=== PATIENT | female | born 1955 | race Caucasian/White ===

== ENCOUNTER → 2016-07-05 | Outpatient (CLI) | payer BC ==
--- NOTE | 2016-07-05 13:07 | MM ---
Reason for exam: follow-up at short interval from prior study. Last mammogram was performed 7 months ago. History: Patient is postmenopausal. Family history of breast cancer in maternal grandmother. Took estrogen for 4 years beginning at age 34. Physical Findings: Nurse did not find any significant physical abnormalities on exam. MG 3D Diag Mammo W/Cad SUMIT Bilateral CC and MLO view(s) were taken. Prior study comparison: June 10, 2015, bilateral MG 3d diag mammo w/cad SUMIT. May 19, 2014, bilateral MG screening mammo w CAD. April 10, 2013, bilateral digital screening mammo w/CAD. The breast tissue is heterogeneously dense. This may lower the sensitivity of mammography. Finding: There are typically benign linear calcifications in both breasts. There is no discrete abnormality. These results were verbally communicated with the patient and result sheet given to the patient on 07/05/16. ASSESSMENT: Benign, BI-RAD 2 RECOMMENDATION: Routine screening mammogram of both breasts in 1 year.
== END | disposition home or self-care (01) ==
LOC: RADMAMWWP 10:45
PROVIDERS: ATTEND Family Medicine
DX: R92.8 Other abnormal and inconclusive findings on diagnostic imaging of breast (principal)
CPT/HCPCS: G0204; G0279

== ENCOUNTER → 2017-05-16 | Outpatient (CLI) | payer BC ==
--- NOTE | 2017-05-16 16:03 | CT ---
EXAMINATION TYPE: CT chest wo con DATE OF EXAM: 05/16/2017 COMPARISON: 12/06/2015 HISTORY: 61-year-old female Chest tightness. Cough. Follow up nodule. TECHNIQUE: Contiguous axial scanning of the chest without IV contrast. Coronal and sagittal reconstru ctions performed. CT DLP: 601 mGycm Automated exposure control for dose reduction was used. FINDINGS: Heart upper limits of normal in size without pericardial effusion. Aorta normal caliber with conventional arch vessel branching anatomy. No thoracic lymphadenopathy by CT size criteria. Interval resolution of previous small left pleural effusion and abnormal left basilar densities. No c onsolidation or pleural effusion. No suspicious pulmonary nodule or mass seen. Small hiatal hernia. Visualized upper abdomen shows low-attenuation of the liver. Bones: Anterior bridging endplate spondylosis throughout the thoracic spine suggestive of DISH. IMPRESSION: 1. INTERVAL CLEARANCE OF PREVIOUS LEFT PLEURAL EFFUSION AND LEFT BASILAR INFILTRATE. NO ACUTE PULMONA RY PROCESS. 2. SMALL HIATAL HERNIA. 3. HEPATIC STEATOSIS.
== END | disposition home or self-care (01) ==
LOC: RADCTMAIN 15:18
PROVIDERS: ATTEND Nurse Practitioner Family
DX: R05 Cough (principal); R06.09 Other forms of dyspnea
CPT/HCPCS: 71250

== ENCOUNTER 2017-05-25 08:53 | Day surgery (SDC) | payer BC ==
[2017-05-23 12:20] VITALS: BMI 23.3
[~2017-05-25 08:53] MED LIST: LACTATED RINGERS 1,000 ML IV SCH; LIDOCAINE 1% 20 ML VIAL (10MG/ML) FOR IV START INTRADERMA PRN
[2017-05-25 09:58] VITALS: TEMP 99
[2017-05-25] MEDS ORDERED: fentaNYL (PF) 50 MCG/ML 2 ML AMP ONE (10:16)
[2017-05-25] MEDS ORDERED: PROPOFOL 10 MG/ML 20 ML VIAL IV ONE (10:16)
[2017-05-25] MEDS ORDERED: MIDAZOLAM 2 MG/2 ML VIAL ONE (10:16)
[2017-05-25 10:40] VITALS: PULSE 76; RESP 16
--- NOTE | 2017-05-25 10:40 | P.PCN ---
Date of Procedure: 05/25/17 Procedure(s) Performed: BRIEF HISTORY: Patient is a 61-year-old pleasant white female, scheduled for an elective colonoscopy as a part of evaluation of prior history of colon polyps. Last colonoscopy was 5 years ago. PROCEDURE PERFORMED: Colonoscopy. PREOPERATIVE DIAGNOSIS: History of colon polyps. IV sedation per Anesthesia. PROCEDURE: After informed consent was obtained, the patient, was brought into the endoscopy unit. IV sedation was administered by Anesthesia under continuous monitoring. Digital rectal examination was normal. Initially the Olympus CF- 160 flexible video colonoscope was then inserted in the rectum, gradually advanced into the cecum without any difficulty. Careful examination was performed as the scope was gradually being withdrawn. Ileocecal valve and the appendiceal orifice were visualized and appeared normal. Prep was excellent. Mucosa of the cecum, ascending colon, transverse colon, descending colon, sigmoid colon, and rectum appeared normal. Retroflexion was performed in the rectum and no lesions were seen. The patient tolerated the procedure well. IMPRESSION: Normal-appearing colon from rectum to cecum with no evidence of colorectal neoplasia. RECOMMENDATIONS: Findings of this examination were discussed with the patient as well as a family. She was advised to have a repeat screening colonoscopy in 5 years from now because of prior history of colon polyps..
[2017-05-25 11:04] VITALS: BP 118/76
== END 2017-05-25 11:17 | disposition home or self-care (01) ==
LOC: ORWHC2ENDO 08:53
PROVIDERS: ATTEND Internal Medicine Gastroenterology
DX: Z12.11 Encounter for screening for malignant neoplasm of colon (principal); K21.9 Gastro-esophageal reflux disease without esophagitis; J45.909 Unspecified asthma, uncomplicated; I10 Essential (primary) hypertension; F41.9 Anxiety disorder, unspecified; Z79.899 Other long term (current) drug therapy; Z86.010 Personal history of colon polyps; Z88.2 Allergy status to sulfonamides; Z88.5 Allergy status to narcotic agent; Z88.8 Allergy status to other drugs, medicaments and biological substances
CPT/HCPCS: 45378; J2250; J3010; J2704

== ENCOUNTER → 2017-09-14 | Outpatient (CLI) | payer BC ==
--- NOTE | 2017-09-17 14:56 | MM ---
Reason for exam: screening (asymptomatic). Last mammogram was performed 1 year and 2 months ago. History: Patient is postmenopausal. Family history of breast cancer in maternal grandmother. Took estrogen for 4 years beginning at age 34. Physical Findings: A clinical breast exam by your physician is recommended on an annual basis and results should be correlated with mammographic findings. MG 3D Screening Mammo W/Cad Bilateral CC, MLO, and XCCL view(s) were taken. Prior study comparison: July 05, 2016, bilateral MG 3d diag mammo w/cad SUMIT. December 08, 2015, left breast MG 3d diag mammo w/cad LT. The breast tissue is heterogeneously dense. This may lower the sensitivity of mammography. No significant changes when compared with prior studies. ASSESSMENT: Benign, BI-RAD 2 RECOMMENDATION: Routine screening mammogram of both breasts in 1 year.
== END | disposition home or self-care (01) ==
LOC: RADMAMWWP 13:33
PROVIDERS: ATTEND Family Medicine
DX: Z12.31 Encounter for screening mammogram for malignant neoplasm of breast (principal)
CPT/HCPCS: 77063; 77067

== ENCOUNTER → 2018-07-19 | Outpatient (CLI) | payer BC ==
--- NOTE | 2018-07-20 11:21 | XR ---
Cervical spine HISTORY: Pain 5 views of the cervical spine There is multilevel facet arthropathy. Multilevel spondylosis is present. Lateral extension of endpla roman at C4-5, C5-6, C3-4 causes some foraminal encroachment. Minimal retrolisthesis grade 1 C4-5, C5-6 . There is loss of disc height at C4-5 and C5-6. Prevertebral soft tissues are normal. IMPRESSION: Degenerative disc disease. Facet arthropathy. Foraminal encroachment.
== END | disposition home or self-care (01) ==
LOC: RADXRMAIN 15:21
PROVIDERS: ATTEND Nurse Practitioner Family
DX: M50.321 Other cervical disc degeneration at C4-C5 level (principal); M46.92 Unspecified inflammatory spondylopathy, cervical region
CPT/HCPCS: 72050

== ENCOUNTER → 2018-08-27 | Outpatient (CLI) | payer BC ==
--- NOTE | 2018-08-27 16:04 | US ---
EXAMINATION TYPE: US bladder DATE OF EXAM: 08/27/2018 COMPARISON: CT, Us CLINICAL HISTORY: R39.15 Urgency of urination and frequency, bladder suspension EXAM MEASUREMENTS: Post Void Residual Volume: 5.8 mL Bladder sits low in pelvis. Color Doppler performed to assess ureteral jets. Bilateral Jets seen: right ureteral jet was not seen after 3 minute observation Normal Post Void Residual (less than 50ml): yes, post void residual wnl. IMPRESSION: Normal post void residual volume
== END | disposition home or self-care (01) ==
LOC: RADUSWWP 14:11
PROVIDERS: ATTEND Family Medicine
DX: R39.15 Urgency of urination (principal)
CPT/HCPCS: 76857

== ENCOUNTER → 2018-09-20 | Outpatient (CLI) | payer BC ==
--- NOTE | 2018-09-23 07:58 | MM ---
Reason for exam: clinical finding. Last mammogram was performed 1 year ago. History: Patient is postmenopausal. Family history of breast cancer in maternal grandmother. Took estrogen for 4 years beginning at age 34. Physical Findings: Nurse did not find any significant physical abnormalities on exam. MG 3D Diag Mammo W/Cad SUMIT Bilateral CC and MLO view(s) were taken. Prior study comparison: September 14, 2017, bilateral MG 3d screening mammo w/cad. July 05, 2016, bilateral MG 3d diag mammo w/cad SUMIT. The breast tissue is heterogeneously dense. This may lower the sensitivity of mammography. Stable benign calcifications. No significant new findings when compared with previous films. These results were verbally communicated with the patient and result sheet given to the patient on 09/20/18. ASSESSMENT: Benign, BI-RAD 2 RECOMMENDATION: Routine screening mammogram of the right breast in 1 year.
== END | disposition home or self-care (01) ==
LOC: RADMAMWWP 15:56
PROVIDERS: ATTEND Family Medicine
DX: N64.4 Mastodynia (principal)
CPT/HCPCS: 77062; 77066

== ENCOUNTER → 2019-05-26 | Outpatient (CLI) | payer BC ==
--- NOTE | 2019-05-26 14:15 | US ---
EXAMINATION TYPE: US abdomen complete DATE OF EXAM: 05/26/2019 COMPARISON: US 02/02/2015 CLINICAL HISTORY: R10.84 ABDOMINAL PAIN. Extremely difficult and limited exam due to overlying bowel gas EXAM MEASUREMENTS: Liver Length: 17.3 cm Gallbladder Wall: 0.2 cm CBD: 0.6 cm Spleen: 8.2 cm Right Kidney: 9.2 x 3.3 x 3.6 cm Left Kidney: 12.0 x 5.8 x 4.5 cm Pancreas: Obscured by bowel gas Liver: Measuring upper limits of normal. There is increased echogenicity of the hepatic parenchyma w ith diminished visualization of the portal triads most commonly relating to hepatic steatosis and kulkarni iting evaluation for underlying hepatic masses. Gallbladder: wnl Evidence for sonographic Tran's sign: No CBD: very difficult to visualize, measuring upper limits of normal Spleen: wnl Right Kidney: No hydronephrosis or masses seen Left Kidney: No hydronephrosis or masses seen Upper IVC: wnl Abd Aorta: wnl as visualized The intrahepatic portion of the IVC and proximal abdominal aorta are within normal limits. There is no evidence of cholelithiasis. Common bile duct is unremarkable. The visualized portions of the durand creas are homogenous. The spleen is unremarkable. Kidneys are symmetric and free of hydronephrosis. No renal lesions are seen. IMPRESSION: Limited exam secondary to overlying bowel gas. 1. Sonographic findings most commonly related to hepatic steatosis. Correlate with liver function roman ts. 2. Difficulty visualizing the common bile duct however the common bile duct does appear upper limits of normal. No other sonographic evidence of acute cholecystitis seen.
== END | disposition home or self-care (01) ==
LOC: RADUSWWP 11:58
PROVIDERS: ATTEND Family Medicine
DX: R10.84 Generalized abdominal pain (principal)
CPT/HCPCS: 76700

== ENCOUNTER 2019-12-26 07:04 | Inpatient (IN) | payer BC ==
[2019-12-26] MEDS ORDERED: SODIUM CHLORIDE 0.9% 500 ML 500 ML IV ONE (07:35)
--- NOTE | 2019-12-26 07:38 | ED ---
Abdominal Pain HPI - General Chief Complaint: Abdominal Pain Stated Complaint: Abdominal pain Time Seen by Provider: 12/26/19 07:25 Source: patient Mode of arrival: ambulatory Limitations: no limitations - History of Present Illness Initial Comments: 64-year-old female with history of complete hysterectomy secondary to endometriosis, bowel obstruction with resection in past presenting to the emergency department today for chief complaint of lower abdominal pain x 3 days. Patient states she has bilateral lower abdominal pain she states is very crampy in nature. She states she has noticed increased constipation and hard stools. Patient denies any dysuria but admits to urgency denies frequency fevers nausea vomiting chest pain shortness of breath, dark or blood stools. Patient states he took Advil just prior to arrival she appears well nontoxic no acute distress. Patient states she did see her PCP who did a urine yesterday but did not show s igns of infection. - Related Data Home Medications Medication Instructions Recorded Confirmed Escitalopram Oxalate [Lexapro] 10 mg PO DAILY 12/06/15 12/26/19 LORazepam [Ativan] 1 mg PO BID PRN 12/06/15 12/26/19 Esomeprazole Magnesium [NexIUM] 20 mg PO DAILY 05/23/17 12/26/19 lisinopriL [Zestril] 5 mg PO DAILY 05/23/17 12/26/19 Montelukast [Singulair] 10 mg PO HS 12/26/19 12/26/19 cycloSPORINE [Restasis Multidose] 1 drop BOTH EYES BID 12/26/19 12/26/19 Allergies Allergy/AdvReac Type Severity Reaction Status Date / Time codeine Allergy FLUSHED Verified 12/26/19 08:31 levofloxacin [From Levaquin] Allergy Nausea & Verified 12/26/19 08:31 Vomiting Sulfa (Sulfonamide Allergy Unknown Verified 12/26/19 08:31 Antibiotics) theophylline Allergy Rapid Verified 12/26/19 08:31 Heart Rate Review of Systems ROS Statement: Those systems with pertinent positive or pertinent negative responses have been documented in the HPI. ROS Other: All systems not noted in ROS Statement are negative. Past Medical History Past Medical History: Asthma, GERD/Reflux, Hyperlipidemia, Hypertension, O steoarthritis (OA), Skin Disorder Additional Past Medical History / Comment(s): SEIZURE -LAST SEIZURE AT AGE 30 ,"INCOMPLETE RIGHT BUNDLE BRANCH BLOCK" History of Any Multi-Drug Resistant Organisms: None Reported Past Surgical History: Bowel Resection, Hysterectomy Additional Past Surgical History / Comment(s): BOWEL RESECTION, BLADDER REPAIR,CYST REMOVED FROM OVARY Past Anesthesia/Blood Transfusion Reactions: No Reported Reaction Past Psychological History: Anxiety, Depression Smoking Status: Never smoker Past Alcohol Use History: Rare Past Drug Use History: None Reported - Past Family History Mother Family Medical History: Cancer Additional Family Medical History / Comment(s): COLON CANCER General Exam - General Exam Comments Initial Comments: General: The patient is awake and alert, in no distress Eye: +3 mm pupils are equal, round and reactive to light, extra-ocular movements are intact. No nystagmus. There is normal conjunctiva bilaterally. No signs of icterus. Ears, nose, mouth and throat: There are moist mucous membranes and no oral lesions. Neck: The neck is supple, there is no tenderness or JVD. Cardiovascular: There is a regular rate and rhythm. No murmur, rub or gallop is appreciated. Respiratory: Lungs are clear to auscultation, respirations are non-labored, breath sounds are equal. No wheezes, stridor, rales, or rhonchi. Gastrointestinal: Soft, non-distended, tender lower middle abdomen, abdomen without masses or organomegaly noted. There is no rebound or guarding present. Musculoskeletal: Normal ROM, no tenderness. Strength 5/5. Sensation intact. Radial pulses equal bilaterally 2+. Neurological: A&O x 3. CN II-XII intact grossly, There are no obvious motor or sensory deficits. Coordination appears grossly intact. Speech is normal. Skin: Skin is warm and dry and no rashes or lesions are noted. Psychiatric: Cooperative, appropriate mood & affect, normal judgment. Limitations: no limitations Course Vital Signs 12/26/19 07:15 Temperature 98.5 F Pulse Rate 99 Respiratory 18 Rate Blood Pressure 127/79 O2 Sat by Pulse 98 Oximetry Medical Decision Making - Medical Decision Making Mild leukocytosis. Severe diverticulitis. Given age, pain, severe nature of disease will admit on IV abx, monitoring. Patient is agreeable to care plan and admission as is attending provider Dr. Rosas. - Lab Data Result diagrams: 12/26/19 07:56 12/26/19 07:56 Lab Results 10/02/20 10/02/20 10/02/20 Range/Units 07:56 07:56 07:56 WBC 12.7 H (3.8-10.6) k/uL RBC 4.52 (3.80-5.40) m/uL Hgb 12.5 (11.4-16.0) gm/dL Hct 39.2 (34.0-46.0) % MCV 86.6 (80.0-100.0) fL MCH 27.6 (25.0-35.0) pg MCHC 31.8 (31.0-37.0) g/dL RDW 13.8 (11.5-15.5) % Plt Count 335 (150-450) k/uL Neutrophils % 75 % Lymphocytes % 17 % Monocytes % 6 % Eosinophils % 1 % Basophils % 0 % Neutrophils # 9.4 H (1.3-7.7) k/uL Lymphocytes # 2.1 (1.0-4.8) k/uL Monocytes # 0.7 (0-1.0) k/uL Eosinophils # 0.1 (0-0.7) k/uL Basophils # 0.0 (0-0.2) k/uL Sodium 136 L (137-145) mmol/L Potassium 4.3 (3.5-5.1) mmol/L Chloride 102 (98-107) mmol/L Carbon Dioxide 28 (22-30) mmol/L Anion Gap 6 mmol/L BUN 12 (7-17) mg/dL Creatinine 0.76 (0.52-1.04) mg/dL Est GFR (CKD-EPI)AfAm >90 (>60 ml/min/1.73 sqM) Est GFR (CKD-EPI)NonAf 83 (>60 ml/min/1.73 sqM) Glucose 117 H (74-99) mg/dL Calcium 9.6 (8.4-10.2) mg/dL Total Bilirubin 1.2 (0.2-1.3) mg/dL AST 28 (14-36) U/L ALT 36 H (4-34) U/L Alkaline Phosphatase 95 (38-126) U/L Total Protein 6.9 (6.3-8.2) g/dL Albumin 4.0 (3.5-5.0) g/dL Amylase 52 (30-110) U/L Lipase 60 (23-300) U/L Urine Color Light Red Urine Appearance Clear (Clear) Urine pH 5.5 (5.0-8.0) Ur Specific Douglas 1.028 (1.001-1.035) Urine Protein 1+ H (Negative) Urine Glucose (UA) Negative (Negative) Urine Ketones Negative (Negative) Urine Blood Moderate H (Negative) Urine Nitrite Negative (Negative) Urine Bilirubin Negative (Negative) Urine Urobilinogen 2.0 (<2.0) mg/dL Ur Leukocyte Esterase Moderate H (Negative) Urine RBC 4 (0-5) /hpf Urine WBC 4 (0-5) /hpf Ur Squamous Epith Cells 5 H (0-4) /hpf Hyaline Casts 2 (0-2) /lpf Urine Mucus Many H (None) /hpf Disposition Clinical Impression: Diverticulitis, Lower abdominal pain, Leukocytosis Disposition: ADMITTED IP TO THIS [facility] Condition: Stable Additional Instructions: . Is patient prescribed a controlled substance at d/c from ED?: No Referrals: Sharmila Mata III, MD [Primary Care Provider] - 1-2 days Time of Disposition: 09:03 Decision to Admit Reason: Admit from [facility] Decision Date: 12/26/19 Decision Time: 09:03
[2019-12-26 08:07] LABS: Basophils % (A) 0 %; Eosinophils # (A) 0.1 k/uL (0-0.7); Eosinophils % (A) 1 %; HCT 39.2 % (34.0-46.0); HGB 12.5 gm/dL (11.4-16.0); Lymphocytes # (A) 2.1 k/uL (1.0-4.8); Lymphocytes % (A) 17 %; MCH 27.6 pg (25.0-35.0); MCHC 31.8 g/dL (31.0-37.0); MCV 86.6 fL (80.0-100.0); Mean Platelet Volume 6.7; Monocytes # (A) 0.7 k/uL (0-1.0); Monocytes % (A) 6 %; Neutrophils # (A) 9.4 k/uL (1.3-7.7); Neutrophils % (A) 75 %; Platelet Count 335 k/uL (150-450); RBC 4.52 m/uL (3.80-5.40); RDW 13.8 % (11.5-15.5); WBC 12.7 k/uL (3.8-10.6)
[2019-12-26 08:17] LABS: Appearance,Urine Clear (Clear); Bilirubin,Urine Negative (Negative); Blood,Urine Moderate (Negative); Color,Urine Light Red; Glucose,Urine (UA) Negative (Negative); Hyaline Casts,Urine 2 /lpf (0-2); Ketones,Urine Negative (Negative); Leukocyte Esterase,Urine Moderate (Negative); Mucus,Urine Many /hpf; Nitrite,Urine Negative (Negative); PH, Urine 5.5 (5.0-8.0); Protein,Urine 1+ (Negative); RBC,Urine 4 /hpf (0-5); Specific Gravity,Urine 1.028 (1.001-1.035); Squamous Epithelial Cell,Urine 5 /hpf (0-4); WBC,Urine 4 /hpf (0-5)
[2019-12-26 08:21] LABS: ALT 36 U/L (4-34); AST 28 U/L (14-36); African American GFR (CKD) >90 (>60 ml/min/1.73 sqM); Alkaline Phosphatase 95 U/L (38-126); Amylase 52 U/L (30-110); Anion Gap 6 mmol/L; Blood Urea Nitrogen 12 mg/dL (7-17); Calcium 9.6 mg/dL (8.4-10.2); Carbon Dioxide 28 mmol/L (22-30); Chloride 102 mmol/L (98-107); Glucose 117 mg/dL (74-99); Non-African American GFR(CKD) 83 (>60 ml/min/1.73 sqM); Potassium 4.3 mmol/L (3.5-5.1); Sodium 136 mmol/L (137-145); Total Bilirubin 1.2 mg/dL (0.2-1.3); Total Protein 6.9 g/dL (6.3-8.2)
--- NOTE | 2019-12-26 08:22 | XR ---
EXAMINATION TYPE: XR KUB DATE OF EXAM: 12/26/2019 8:14 AM CLINICAL HISTORY: Lower abdominal pain and constipation. TECHNIQUE: Two Upright KUB images of the abdomen are obtained. COMPARISON: None abdominal x-ray March 15, 2013. FINDINGS: Scattered gas is seen in non-distended small and large bowel loops, a few scattered air-flu id levels seen, nonspecific finding. Moderate disc space narrowing and spurring left L4-L5 level more prominent from prior. Surgical clips and phleboliths overlie the pelvis similar to prior. Lung bases are clear. No pneumoperitoneum. Roughly 10 mm right lower quadrant calcification near the right L4 t ransverse process increased in size from prior study, etiology uncertain. Abdominal ultrasound May 26, 2019 does not show right-sided hydronephrosis. Favor high positioned phlebolith. IMPRESSION: Overall nonspecific but strongly favor nonobstructive bowel gas pattern.
--- NOTE | 2019-12-26 08:59 | CT ---
EXAMINATION TYPE: CT abdomen pelvis w con DATE OF EXAM: 12/26/2019 HISTORY: generalized pelvic pain, bloating CT DLP: 781.5mGycm Automated Exposure Control for Dose Reduction was Utilized. CONTRAST: CT scan of the abdomen and pelvis is performed without oral but with IV Contrast, patient injected wi th 100 mL of Isovue 300. COMPARISON: CT abdomen and pelvis March 15, 2013 FINDINGS: LUNG BASES: Patchy left basilar linear atelectasis on current study. LIVER/GB: Liver remains heterogeneously hypodense suggesting diffuse fatty infiltration. PANCREAS: No significant abnormality is seen. SPLEEN: No significant abnormality is seen. ADRENALS: No significant abnormality is seen. KIDNEYS: Symmetric cortical medullary uptake and excretion from both kidneys without hydronephrosis s een bilaterally. BOWEL: Surgical sutures from prior small bowel anastomosis iliac loops right upper pelvis axial image 59. No suspicious small or large bowel dilatation. There is focal moderate to severe wall thickening in the sigmoid colon centered mid sigmoid level in the mid to lower pelvis with a few small scattere d diverticula. There is moderate to severe ill-defined fluid and fat stranding. No free air is presen t. No well-formed fluid collection or abscess noted. Reference axial image 70. Consider colonoscopy f ollow-up after treatment to rule out underlying mass effect has not been performed in last 3 years. UTERUS/ADNEXA: Uterus surgically absent or markedly atrophic. Scattered bilateral pelvic phleboliths are present. LYMPH NODES: No greater than 1cm abdominal or pelvic lymph nodes are appreciated. OSSEOUS STRUCTURES: Yizapqiq-yj-hyojsj disc space narrowing L4-L5 and L5-S1 levels. Vacuum disc pheno jorgito L4-L5 level. Facet arthropathy lower lumbar spine. OTHER: No significant additional abnormality is seen. IMPRESSION: CT findings consistent with a fairly moderate to severe but uncomplicated acute diverticu litis mid sigmoid colon level in the mid to lower pelvis as detailed above.
[2019-12-26] MEDS ORDERED: NALOXONE 0.4 MG/ML 1 ML VIAL IV PRN (09:03)
[2019-12-26] MEDS ORDERED: PIPERACILLIN-TAZOBACTAM 3.375 GM in SODIUM CHLORIDE 0.9% 100 ML IVPB ONE (09:15)
[2019-12-26] MEDS: PIPERACILLIN-TAZOBACTAM 3.375 GM in SODIUM CHLORIDE 0.9% 100 ML IVPB SCH ×2 (16:01→23:44)
--- NOTE | 2019-12-26 21:17 | P.HPIM ---
History of Present Illness H&P Date: 12/26/19 Patient is a 63-year-old male with known history of hypertension, hyperlipidemia, osteoarthritis, history of bowel resection due to obstruction, hysterectomy secondary to endometriosis, asthma, GERD and anxiety/depression with previous history of smoking came to ER with complaints of abdominal pain for the past 3 days. Patient states that she does have bilateral lower abdominal pain. Cramping type is also with nausea. Patient is also having constipation and hard stools recently. Denied any dysuria or hematuria. No fever no chills. No complaints of chest pain or shortness breath. Denies any hematemesis or melena or hematochezia. Patient states that she did see her primary care physician and urinalysis was done which showed no signs of infection. Laboratory showed WBC 12.7, hemoglobin 12.5, platelets 335 Sodium 136, potassium 4.3, BUN 12 and creatinine 0.76 AST 28 ALT 36 and alk phos 95 Lipase 60 Urinalysis showed moderate blood and moderate leukocyte esterase. WBC is less than 4 Patient has been afebrile. CT of the abdomen pelvis showed is consistent with fairly moderate to severe but uncomplicated acute diverticulitis. Mild sigmoid colon level in the mid to lower pelvis. KUB x-ray showed overall nonspecific but strongly favor for nonobstructive bowel gas pattern. Review of Systems Constitutional: Patient denies any fever or chills . No generalized weakness or weight loss. Abdomen: Abdominal pain associate with nausea. No diarrhea. patient does have constipation.. Cardiovascular: Patient denies any chest pain or short of breath no palpitations. Respiratory: patient denied any cough or sputum production. No shortness of breath Neurologic: Patient denied any numbness or tingling headache. Musculoskeletal: Patient denies any complaints of joint swelling or deformity. Skin: Negative Psychiatric: Negative Endocrine: No heat or cold intolerance. No recent weight gain. Genitourinary: No dysuria or hematuria. All other 14 point ROS negative except the above Past Medical History Past Medical History: Asthma, GERD/Reflux, Hyperlipidemia, Hypertension, Osteoarthritis (OA), Skin Disorder Additional Past Medical History / Comment(s): SEIZURE -LAST SEIZURE AT AGE 30 ,"INCOMPLETE RIGHT BUNDLE BRANCH BLOCK" History of Any Multi-Drug Resistant Organisms: None Reported Past Surgical History: Bowel Resection, Hysterectomy Additional Past Surgical History / Comment(s): BOWEL RESECTION, BLADDER REPAIR,CYST REMOVED FROM OVARY Past Anesthesia/Blood Transfusion Reactions: No Reported Reaction Past Psychological History: Anxiety, Depression Smoking Status: Former smoker Past Alcohol Use History: Rare Additional Past Alcohol Use History / Comment(s): STARTED SMOKING AT 16 QUIT AGE 29 SMOKED ON AND OFF SMOKED 1/2PPD Past Drug Use History: None Reported - Past Family History Mother Family Medical History: Cancer Additional Family Medical History / Comment(s): COLON CANCER Medications and Allergies Home Medications Medication Instructions Recorded Confirmed Type Escitalopram Oxalate [Lexapro] 10 mg PO DAILY 12/06/15 12/26/19 History LORazepam [Ativan] 1 mg PO BID PRN 12/06/15 12/26/19 History Esomeprazole Magnesium [NexIUM] 20 mg PO DAILY 05/23/17 12/26/19 History lisinopriL [Zestril] 5 mg PO DAILY 05/23/17 12/26/19 History Montelukast [Singulair] 10 mg PO HS 12/26/19 12/26/19 History cycloSPORINE [Restasis Multidose] 1 drop BOTH EYES BID 12/26/19 12/26/19 History Allergies Allergy/AdvReac Type Severity Reaction Status Date / Time codeine Allergy FLUSHED Verified 12/26/19 08:31 levofloxacin [From Levaquin] Allergy Nausea & Verified 12/26/19 08:31 Vomiting Sulfa (Sulfonamide Allergy Unknown Verified 12/26/19 08:31 Antibiotics) theophylline Allergy Rapid Verified 12/26/19 08:31 Heart Rate Physical Exam Vitals: Vital Signs Temp Pulse Pulse Resp BP BP Pulse Ox 12/26/19 14:58 98.4 F 81 17 125/79 97 12/26/19 09:25 82 18 124/76 99 12/26/19 07:15 98.5 F 99 18 127/79 98 Intake and Output 12/26/19 12/26/19 12/26/19 06:59 14:59 22:59 Other: Voiding Method Toilet # Voids 2 Weight 66.678 kg PHYSICAL EXAMINATION: Patient is lying in the bed comfortably, no acute distress, awake alert and oriented.. HEENT: Normocephalic. Neck is supple. Pupils reactive. Nostrils clear. Oral cavity is moist. Ears reveal no drainage. Neck reveals no JVD, carotid bruits, or thyromegaly. CHEST EXAMINATION: Trachea is central. Symmetrical expansion. Lung lombardo clear to auscultation and percussion. CARDIAC: Normal S1, S2 with no gallops. No murmurs ABDOMEN: Soft.Mild lower abdominal tenderness mainly on the left side. No guarding no rigidity. Bowel sounds normal. No organomegaly. No abdominal bruits. Extremities: reveal no edema. No clubbing or cyanosis Neurologically awake, alert, oriented x3 with well-coordinated movements. No focal deficits noted Skin: No rash or skin lesions. Psychiatric: Coperative. Nonsuicidal Musculoskeletal: No joint swelling or deformity. Normal range of motion. Results CBC & Chem 7: 12/28/19 05:52 12/26/19 07:56 Labs: Abnormal Lab Results - Last 24 Hours (Table) 12/26/19 12/26/19 12/26/19 Range/Units 07:56 07:56 07:56 WBC 12.7 H (3.8-10.6) k/uL Neutrophils # 9.4 H (1.3-7.7) k/uL Sodium 136 L (137-145) mmol/L Glucose 117 H (74-99) mg/dL ALT 36 H (4-34) U/L Urine Protein 1+ H (Negative) Urine Blood Moderate H (Negative) Ur Leukocyte Esterase Moderate H (Negative) Ur Squamous Epith Cells 5 H (0-4) /hpf Urine Mucus Many H (None) /hpf Thrombosis Risk Factor Assmnt - DVT/VTE Prophylaxis DVT/VTE Prophylaxis: Pharmacologic Prophylaxis ordered - Choose All That Apply Any of the Below Risk Factors Present?: No Other Risk Factors: Yes Each Risk Factor Represents 2 Points: Age 61-74 years Other congenital or acquired thrombophilia - If yes, enter type in comment: No Thrombosis Risk Factor Assessment Total Risk Factor Score: 2 Thrombosis Risk Factor Assessment Level: Low Risk Assessment and Plan Assessment: Abdominal pain secondary to acute severe diverticulitis. Hypertension Hyperlipidemia GERD Asthma not in exacerbation Anxiety/depression Previous history of smoking History of bowel resection due to obstruction. History of hysterectomy secondary to endometriosis. DVT prophylaxis plan: Patient will be continued IV hydration with normal saline and antibiotics in the form of Zosyn. Continue with home blood pressure medications and GI and DVT prophylaxis. Gastroenterology service was consulted. Further recommendations based on the clinical course. Time with Patient: Greater than 30
[2019-12-26] MEDS: MONTELUKAST 10 MG TAB PO SCH (21:18)
[2019-12-26] MEDS: LORazepam 1 MG TAB PO PRN (21:22)
--- NOTE | 2019-12-26 22:19 | CONS ---
CONSULTATION DATE OF DICTATION: 12/26/2019 REASON FOR CONSULTATION: Acute significant diverticulitis. HISTORY OF PRESENT ILLNESS: The patient is a 64-year-old pleasant white female who came to the emergency room complaining of left lower quadrant abdominal pain for the last 4 days' duration. The pain continued to progressively get worse and she initially had some constipation and subsequently had loose bowel movements. The pain persisted and she had a low-grade fever of 100.1 and hence came into the emergency room and was subsequently admitted to the hospital for further management. She did have a CT of the abdomen and pelvis done in the emergency room that showed moderate to severe uncomplicated acute diverticulitis. She was started on broad-spectrum antibiotics, feeling somewhat better today. She never had these symptoms in the past. Her last colonoscopy was done by me 2 years ago and was normal. PAST MEDICAL HISTORY: Her past medical history is significant for asthma, GERD, hypertension, hyperlipidemia, degenerative joint disease, seizure disorder. PAST SURGICAL HISTORY: Bowel resection, hysterectomy, bladder repair, cyst removed from the right ovary. ALLERGIES: SULFA, LEVAQUIN, CODEINE AND THEOPHYLLINE. MEDICATIONS AT HOME: Medications at home include Lexapro, Ativan, Zestril, Nexium, Singulair, cyclosporine eyedrops and Ativan p.r.n. SOCIAL HISTORY: No smoking. No alcohol use. FAMILY HISTORY: Mother had colon cancer. REVIEW OF SYSTEMS: CARDIOPULMONARY: No chest pain or shortness of breath. GENITOURINARY: No dysuria or hematuria. MUSCULOSKELETAL: Unremarkable. SKIN: Unremarkable. ENDOCRINE: Unremarkable. PSYCHIATRIC: Unremarkable. NEUROLOGY: Unremarkable. ENT/VISION: Unremarkable. CONSTITUTIONAL: No recent weight loss. No fever, chills, night sweats. PHYSICAL EXAMINATION: She appears comfortable. No apparent distress. Vital signs are stable. Temperature was 98.4, pulse rate 81, blood pressure 125/79, respirations 17. HEENT examination unremarkable. Conjunctivae pink. Sclerae anicteric. Oral cavity no lesions. NECK: No JVD or lymph node enlargement. CHEST: Clear to auscultation. HEART: Regular rate and rhythm. ABDOMEN: Soft. Tenderness in the left lower quadrant area as well as in the suprapubic area. Rest of the abdomen was benign. No rebound or rigidity. EXTREMITIES: No pedal edema. SKIN: No rashes. NEUROLOGIC: Alert and oriented x3. No focal deficits. LABS: WBC 12.7, hemoglobin 12.5, platelets normal. Neutrophils 9.4. Basic metabolic panel is within normal limits. Urinalysis: Moderate leukocyte esterase. IMPRESSION: 1. This is a lady who presented to the hospital with acute onset of severe left lower quadrant and suprapubic pain for the last [address] scan of the abdomen showed moderate to severe uncomplicated sigmoid diverticulitis, presently on broad- spectrum antibiotics with Zosyn and pain medications. Symptoms are gradually improving. Her last colonoscopy was 2 years ago and was normal. 2. History of hypertension. 3. History of gastroesophageal reflux disease. RECOMMENDATIONS: 1. Clear liquid diet. 2. Continue broad-spectrum antibiotics. 3. Repeat labs in the morning. 4. Will follow with you closely. Thank you for this consultation. MMODL / IJN: [id number] /
[2019-12-26] MEDS: cycloSPORINE 0.05% OPHTH 0.4 ML DROPERETTE BOTH EYES SCH (23:43)
[2019-12-26] MEDS: SODIUM CHLORIDE 0.9% 1,000 ML IV SCH (23:44)
[2019-12-26] MEDS: HEPARIN SODIUM,PORCINE 5,000 UNIT/ML 1 ML VIAL SQ SCH (23:45)
[2019-12-27] MEDS: PANTOPRAZOLE 40 MG TABLET PO SCH (09:34)
[2019-12-27] MEDS: HEPARIN SODIUM,PORCINE 5,000 UNIT/ML 1 ML VIAL SQ SCH ×4 (09:34→23:17)
[2019-12-27] MEDS: ESCITALOPRAM 10 MG TAB PO SCH (09:34)
[2019-12-27] MEDS: PIPERACILLIN-TAZOBACTAM 3.375 GM in SODIUM CHLORIDE 0.9% 100 ML IVPB SCH ×3 (09:34→23:16)
[2019-12-27] MEDS: lisinopriL 5 MG TAB PO SCH (09:34)
[2019-12-27] MEDS: cycloSPORINE 0.05% OPHTH 0.4 ML DROPERETTE BOTH EYES SCH ×2 (09:35→20:55)
[2019-12-27 09:46] LABS: Basophils % (A) 0 %; Eosinophils # (A) 0.1 k/uL (0-0.7); Eosinophils % (A) 1 %; HGB 11.4 gm/dL (11.4-16.0); Lymphocytes # (A) 1.9 k/uL (1.0-4.8); Lymphocytes % (A) 24 %; MCH 28.4 pg (25.0-35.0); MCHC 32.5 g/dL (31.0-37.0); MCV 87.2 fL (80.0-100.0); Mean Platelet Volume 6.7; Monocytes # (A) 0.4 k/uL (0-1.0); Monocytes % (A) 5 %; Neutrophils # (A) 5.5 k/uL (1.3-7.7); Neutrophils % (A) 68 %; Platelet Count 313 k/uL (150-450); RBC 4.01 m/uL (3.80-5.40); RDW 13.8 % (11.5-15.5)
--- NOTE | 2019-12-27 11:13 | PN ---
PROGRESS NOTE DATE OF SERVICE: December 27, 2019 Patient is a 64-year-old pleasant white female admitted to the hospital with severe lower abdominal pain and altered bowel movements for 3-4 days duration. She was subsequently diagnosed with acute sigmoid diverticulitis on CT of the abdomen and pelvis. Presently on Zosyn. Her symptoms are gradually improving. She still has some lower abdominal discomfort. No bowel movements yet. No fever, chills, or night sweats. PHYSICAL EXAMINATION: She appears comfortable. No apparent distress. Vital signs stable. Blood pressure is 109/63, pulse rate 78, temperature 97.6. HEENT examination unremarkable. Conjunctivae pink. Sclerae anicteric. Oral cavity no lesions. NECK no JVD or lymph node enlargement. CHEST was clear to auscultation. HEART: Regular rate and rhythm. ABDOMEN: Soft. There was mild tenderness in the left lower quadrant area as well as in the suprapubic area but no rebound or rigidity. EXTREMITIES: No pedal edema. SKIN no rashes. NEUROLOGIC: Alert and oriented x3. No focal deficits. IMPRESSION: Acute sigmoid diverticulitis. Symptoms are gradually improving. Still has some abdominal discomfort. Remains on broad-spectrum antibiotics. RECOMMENDATIONS: 1. Continue with antibiotics. 2. Advance to full liquid diet. 3. Monitor CBC daily. 4. We will follow with you closely. Thank you for this consultation. MMODL / IJN: [id number] /
[2019-12-27] MEDS: MONTELUKAST 10 MG TAB PO SCH (20:55)
[2019-12-27] MEDS: LORazepam 1 MG TAB PO PRN (20:55)
[2019-12-27] MEDS: SODIUM CHLORIDE 0.9% 1,000 ML IV SCH ×2 (22:05→23:17)
[2019-12-28 06:36] LABS: Basophils # (A) 0.1 k/uL (0-0.2); Basophils % (A) 1 %; Eosinophils # (A) 0.2 k/uL (0-0.7); Eosinophils % (A) 3 %; HCT 36.2 % (34.0-46.0); HGB 11.4 gm/dL (11.4-16.0); Lymphocytes # (A) 2.3 k/uL (1.0-4.8); Lymphocytes % (A) 30 %; MCH 27.4 pg (25.0-35.0); MCHC 31.5 g/dL (31.0-37.0); MCV 87.2 fL (80.0-100.0); Mean Platelet Volume 6.5; Monocytes # (A) 0.4 k/uL (0-1.0); Monocytes % (A) 5 %; Neutrophils # (A) 4.5 k/uL (1.3-7.7); Neutrophils % (A) 59 %; Platelet Count 343 k/uL (150-450); RBC 4.15 m/uL (3.80-5.40); RDW 13.7 % (11.5-15.5); WBC 7.6 k/uL (3.8-10.6)
[2019-12-28] MEDS: HEPARIN SODIUM,PORCINE 5,000 UNIT/ML 1 ML VIAL SQ SCH ×3 (07:04→23:32)
[2019-12-28] MEDS: PANTOPRAZOLE 40 MG TABLET PO SCH (09:10)
[2019-12-28] MEDS: lisinopriL 5 MG TAB PO SCH (09:11)
[2019-12-28] MEDS: PIPERACILLIN-TAZOBACTAM 3.375 GM in SODIUM CHLORIDE 0.9% 100 ML IVPB SCH ×3 (09:11→23:32)
[2019-12-28] MEDS: cycloSPORINE 0.05% OPHTH 0.4 ML DROPERETTE BOTH EYES SCH ×2 (09:11→20:50)
[2019-12-28] MEDS: ESCITALOPRAM 10 MG TAB PO SCH (09:11)
--- NOTE | 2019-12-28 12:01 | PN ---
PROGRESS NOTE DATE OF SERVICE: 12/28/2019 Patient is a 64-year-old pleasant white female admitted to hospital with acute sigmoid diverticulitis. She is doing better but she still has some fullness, pressure-like sensation in the suprapubic area and left lower quadrant area. On full liquid diet, tolerating well. No fever, chills, night sweats. She had two bowel movements today. PHYSICAL EXAMINATION: Blood pressure is 124/78, pulse rate 84, temperature 98.4. HEENT examination unremarkable. Conjunctivae pink. Sclerae anicteric. Oral cavity, no lesions. NECK: No JVD or lymph node enlargement. CHEST was clear to auscultation. HEART: Regular rate and rhythm. ABDOMEN: Soft. Mild tenderness in the left lower quadrant and suprapubic area. EXTREMITIES: No pedal edema. SKIN: No rashes. NEUROLOGIC: Alert and oriented x3. No focal deficits. LABS: From today WBC 7.6, hemoglobin 11.4, platelets normal. Basic metabolic panel is within normal limits. AST 28, ALT 36. Rest of the labs are normal. IMPRESSION: Acute uncomplicated sigmoid diverticulitis on IV Levaquin and Flagyl, gradually improving. Still has some left lower quadrant abdominal pain. Overall, gradually improving. Leukocytosis has resolved. RECOMMENDATIONS: 1. Continue with a full liquid diet. 2. Continue with IV antibiotics today. 3. If she is feeling better diet can be advanced to low-fiber diet tomorrow and she can be discharged home in 1-2 days. Thank you for this consultation. MMODL / IJN: [id number] /
[2019-12-28] MEDS: SODIUM CHLORIDE 0.9% 1,000 ML IV SCH (19:16)
[2019-12-28] MEDS: LORazepam 1 MG TAB PO PRN (20:50)
[2019-12-28] MEDS: MONTELUKAST 10 MG TAB PO SCH (20:50)
--- NOTE | 2019-12-28 22:00 | P.PN ---
Subjective Progress Note Date: 12/27/19 Principal diagnosis: Acute diverticulitis Patient is a 63-year-old male with known history of hypertension, hyperlipidemia, osteoarthritis, history of bowel resection due to obstruction, hysterectomy secondary to endometriosis, asthma, GERD and anxiety/depression with previous history of smoking came to ER with complaints of abdominal pain for the past 3 days. Patient states that she does have bilateral lower abdominal pain. Cramping type is also with nausea. Patient is also having constipation and hard stools recently. Denied any dysuria or hematuria. No fever no chills. No complaints of chest pain or shortness breath. Denies any hematemesis or melena or hematochezia. Patient states that she did see her primary care physician and urinalysis was done which showed no signs of infection. Laboratory showed WBC 12.7, hemoglobin 12.5, platelets 335 Sodium 136, potassium 4.3, BUN 12 and creatinine 0.76 AST 28 ALT 36 and alk phos 95 Lipase 60 Urinalysis showed moderate blood and moderate leukocyte esterase. WBC is less than 4 Patient has been afebrile. CT of the abdomen pelvis showed is consistent with fairly moderate to severe but uncomplicated acute diverticulitis. Mild sigmoid colon level in the mid to lower pelvis. KUB x-ray showed overall nonspecific but strongly favor for nonobstructive bowel gas pattern. 12/27/2019 Patient states that her abdominal discomfort is better. No complaints of chest pain or shortness breath. Patient was started on liquid diet and advance as tolerated. Continue with antibiotics in the form of Zosyn. IV hydration. GI is following. No nausea vomiting. Patient did have diarrhea this morning. Current medications reviewed. Objective - Vital Signs Vital signs: Vital Signs Temp 97.9 F 12/27/19 19:45 Pulse 75 12/27/19 19:45 Resp 14 12/27/19 19:45 BP 137/67 12/27/19 19:45 Pulse Ox 99 12/27/19 19:45 Intake & Output 12/27/19 12/27/19 12/28/19 06:59 18:59 06:59 Intake Total 250 Balance 250 Intake: Intake, IV Titration 250 Amount Piperacillin-Tazobactam 3 100 .375 gm In Sodium Chloride 0.9% 100 ml @ 200 mls/hr IVPB ONCE ONE Rx#:[id number] Sodium Chloride 0.9% 1, 150 000 ml @ 75 mls/hr IV . [id number] ON LICENSE OF [facility] Rx#:[id number] Other: Voiding Method Toilet Toilet Toilet # Voids 2 2 1 - Exam PHYSICAL EXAMINATION: Patient is lying in the bed comfortably, no acute distress, awake alert and oriented.. HEENT: Normocephalic. Neck is supple. Pupils reactive. Nostrils clear. Oral cavity is moist. Ears reveal no drainage. Neck reveals no JVD, carotid bruits, or thyromegaly. CHEST EXAMINATION: Trachea is central. Symmetrical expansion. Lung lombardo clear to auscultation and percussion. CARDIAC: Normal S1, S2 with no gallops. No murmurs ABDOMEN: Soft.Mild lower abdominal tenderness mainly on the left side. No guarding no rigidity. Bowel sounds normal. No organomegaly. No abdominal bruits. Extremities: reveal no edema. No clubbing or cyanosis Neurologically awake, alert, oriented x3 with well-coordinated movements. No focal deficits noted Skin: No rash or skin lesions. Psychiatric: Coperative. Nonsuicidal Musculoskeletal: No joint swelling or deformity. Normal range of motion. - Labs CBC & Chem 7: 12/28/19 05:52 12/26/19 07:56 Labs: Microbiology - Last 24 Hours (Table) 12/26/19 09:21 Blood Culture - Preliminary Blood No Growth after 24 hours Assessment and Plan Assessment: Abdominal pain secondary to acute severe diverticulitis. Hypertension Hyperlipidemia GERD Asthma not in exacerbation Anxiety/depression Previous history of smoking History of bowel resection due to obstruction. History of hysterectomy secondary to endometriosis. DVT prophylaxis plan: Patient will be continued IV hydration with normal saline and antibiotics in the form of Zosyn. Continue with home blood pressure medications and GI and DVT prophylaxis. Gastroenterology is following.. Further recommendations based on the clinical course. Time with Patient: Greater than 30
--- NOTE | 2019-12-28 22:03 | P.PN ---
Subjective Progress Note Date: 12/28/19 Principal diagnosis: Acute diverticulitis Patient is a 63-year-old male with known history of hypertension, hyperlipidemia, osteoarthritis, history of bowel resection due to obstruction, hysterectomy secondary to endometriosis, asthma, GERD and anxiety/depression with previous history of smoking came to ER with complaints of abdominal pain for the past 3 days. Patient states that she does have bilateral lower abdominal pain. Cramping type is also with nausea. Patient is also having constipation and hard stools recently. Denied any dysuria or hematuria. No fever no chills. No complaints of chest pain or shortness breath. Denies any hematemesis or melena or hematochezia. Patient states that she did see her primary care physician and urinalysis was done which showed no signs of infection. Laboratory showed WBC 12.7, hemoglobin 12.5, platelets 335 Sodium 136, potassium 4.3, BUN 12 and creatinine 0.76 AST 28 ALT 36 and alk phos 95 Lipase 60 Urinalysis showed moderate blood and moderate leukocyte esterase. WBC is less than 4 Patient has been afebrile. CT of the abdomen pelvis showed is consistent with fairly moderate to severe but uncomplicated acute diverticulitis. Mild sigmoid colon level in the mid to lower pelvis. KUB x-ray showed overall nonspecific but strongly favor for nonobstructive bowel gas pattern. 12/27/2019 Patient states that her abdominal discomfort is better. No complaints of chest pain or shortness breath. Patient was started on liquid diet and advance as tolerated. Continue with antibiotics in the form of Zosyn. IV hydration. GI is following. No nausea vomiting. Patient did have diarrhea this morning. 12/28/2019 Patient is currently lying in the bed comfortably. Tolerating liquid diet. Does complain of distention and discomfort in the abdomen today. No nausea vomiting or diarrhea. No fever no chills. No chest pain or shortness breath. Patient is being continued on liquid diet and will be advanced to low fat diet. GI is following. Current medications reviewed. Objective - Vital Signs Vital signs: Vital Signs Temp 98.2 F 12/28/19 13:15 Pulse 76 12/28/19 15:35 Resp 16 12/28/19 15:35 BP 110/67 12/28/19 13:15 Pulse Ox 98 12/28/19 13:15 Intake & Output 12/28/19 12/28/19 12/29/19 06:59 18:59 06:59 Intake Total 100 Balance 100 Intake: Oral 100 Other: Voiding Method Toilet Toilet # Voids 2 2 - Exam PHYSICAL EXAMINATION: Patient is lying in the bed comfortably, no acute distress, awake alert and oriented.. HEENT: Normocephalic. Neck is supple. Pupils reactive. Nostrils clear. Oral cavity is moist. Ears reveal no drainage. Neck reveals no JVD, carotid bruits, or thyromegaly. CHEST EXAMINATION: Trachea is central. Symmetrical expansion. Lung lombardo clear to auscultation and percussion. CARDIAC: Normal S1, S2 with no gallops. No murmurs ABDOMEN: Soft.Mild lower abdominal tenderness mainly on the left side. mild distension No guarding no rigidity. Bowel sounds normal. No organomegaly. No abdominal bruits. Extremities: reveal no edema. No clubbing or cyanosis Neurologically awake, alert, oriented x3 with well-coordinated movements. No focal deficits noted Skin: No rash or skin lesions. Psychiatric: Coperative. Nonsuicidal Musculoskeletal: No joint swelling or deformity. Normal range of motion. - Labs CBC & Chem 7: 12/28/19 05:52 12/26/19 07:56 Labs: Microbiology - Last 24 Hours (Table) 12/26/19 09:21 Blood Culture - Preliminary Blood No Growth after 48 hours Assessment and Plan Assessment: Abdominal pain secondary to acute severe diverticulitis. Hypertension Hyperlipidemia GERD Asthma not in exacerbation Anxiety/depression Previous history of smoking History of bowel resection due to obstruction. History of hysterectomy secondary to endometriosis. DVT prophylaxis plan: Patient will be continued IV hydration with normal saline and antibiotics in the form of Zosyn. Continue with home blood pressure medications and GI and DVT prophylaxis. Gastroenterology is following.. Further recommendations based on the clinical course. Time with Patient: Greater than 30
[2019-12-29] MEDS: SODIUM CHLORIDE 0.9% 1,000 ML IV SCH (01:51)
[2019-12-29 06:36] LABS: Basophils # (A) 0.1 k/uL (0-0.2); Basophils % (A) 1 %; Eosinophils # (A) 0.2 k/uL (0-0.7); Eosinophils % (A) 3 %; HCT 37.2 % (34.0-46.0); HGB 11.7 gm/dL (11.4-16.0); Lymphocytes # (A) 2.1 k/uL (1.0-4.8); Lymphocytes % (A) 27 %; MCH 27.6 pg (25.0-35.0); MCHC 31.4 g/dL (31.0-37.0); MCV 87.9 fL (80.0-100.0); Mean Platelet Volume 6.4; Monocytes # (A) 0.5 k/uL (0-1.0); Monocytes % (A) 6 %; Neutrophils # (A) 4.6 k/uL (1.3-7.7); Neutrophils % (A) 61 %; Platelet Count 358 k/uL (150-450); RBC 4.23 m/uL (3.80-5.40); RDW 13.5 % (11.5-15.5); WBC 7.6 k/uL (3.8-10.6)
[2019-12-29] MEDS: PIPERACILLIN-TAZOBACTAM 3.375 GM in SODIUM CHLORIDE 0.9% 100 ML IVPB SCH (07:11)
[2019-12-29] MEDS: HEPARIN SODIUM,PORCINE 5,000 UNIT/ML 1 ML VIAL SQ SCH (07:12)
[2019-12-29] MEDS: lisinopriL 5 MG TAB PO SCH (07:12)
[2019-12-29] MEDS: PANTOPRAZOLE 40 MG TABLET PO SCH (07:12)
[2019-12-29] MEDS: cycloSPORINE 0.05% OPHTH 0.4 ML DROPERETTE BOTH EYES SCH (07:12)
[2019-12-29] MEDS: ESCITALOPRAM 10 MG TAB PO SCH (07:13)
[2019-12-29 08:13] VITALS: BP 135/71; PULSE 75; RESP 18; TEMP 98.3
[2019-12-29] MEDS ORDERED: PROCHLORPERAZINE 10 MG TAB PO PRN (09:54)
[2019-12-29] MEDS ORDERED: MAG HYDROX/AL HYDROX/SIMETH 30 ML CUP PO PRN (09:57)
[2019-12-29 11:04] LABS: African American GFR (CKD) 77.8 (60.0-200.0); Anion Gap 8.5 mmol/L (4.00-12.00); BUN/Creat Ratio 6.67 Ratio (12.00-20.00); Calcium 9.4 mg/dL (8.7-10.3); Carbon Dioxide 25.5 mmol/L (21.6-31.8); Non-African American GFR(CKD) 67.1 (60.0-200.0); Potassium 4.4 mmol/L (3.5-5.5)
--- NOTE | 2019-12-29 14:30 | P.DS ---
Providers Date of admission: 12/26/19 10:16 Attending physician: Lizbeth Jacskon Consults: 12/26/19 09:04 Consult Physician Routine Consulting Provider: Talisha Rojas Consult Reason/Comments: severe diverticulitis Do you want consulting provider notified?: Yes Primary care physician: Sharmila Cardenas [facility] Course: Patient is admitted for the severe diverticulitis the sigmoid colon. Patient is feeling much better today. Her daughter patient will continue on the softer diet for about a week and will be discharged on 10 days of Augmentin patient is presently on Zosyn at her. Patient was evaluated by gastroenterology. PHYSICAL EXAMINATION: GENERAL: The patient is alert and oriented x3, not in any acute distress. Well developed, well nourished. HEENT: Pupils are round and equally reacting to light. EOMI. No scleral icterus. No conjunctival pallor. Normocephalic, atraumatic. No pharyngeal erythema. No thyromegaly. CARDIOVASCULAR: S1 and S2 present. No murmurs, rubs, or gallops. PULMONARY: Chest is clear to auscultation, no wheezing or crackles. ABDOMEN: Soft, nontender, nondistended, normoactive bowel sounds. No palpable organomegaly. MUSCULOSKELETAL: No joint swelling or deformity. EXTREMITIES: No cyanosis, clubbing, or pedal edema. NEUROLOGICAL: Gross neurological examination did not reveal any focal deficits. SKIN: No rashes. The rest of her medical problems has hospitalization course please refer to documentation from Dr. Persaud as today. Patient Condition at Discharge: Stable Plan - Discharge Summary New Discharge Prescriptions: New Amoxicillin/Potassium Clav [Augmentin 875-125 Tablet] 1 tab PO BID 10 Days #20 tab Continue Escitalopram Oxalate [Lexapro] 10 mg PO DAILY LORazepam [Ativan] 1 mg PO BID PRN PRN Reason: Anxiety Esomeprazole Magnesium [NexIUM] 20 mg PO DAILY lisinopriL [Zestril] 5 mg PO DAILY Montelukast [Singulair] 10 mg PO HS cycloSPORINE [Restasis Multidose] 1 drop BOTH EYES BID Discharge Medication List Escitalopram Oxalate [Lexapro] 10 mg PO DAILY 12/06/15 [History] LORazepam [Ativan] 1 mg PO BID PRN 12/06/15 [History] Esomeprazole Magnesium [NexIUM] 20 mg PO DAILY 05/23/17 [History] lisinopriL [Zestril] 5 mg PO DAILY 05/23/17 [History] Montelukast [Singulair] 10 mg PO HS 12/26/19 [History] cycloSPORINE [Restasis Multidose] 1 drop BOTH EYES BID 12/26/19 [History] Amoxicillin/Potassium Clav [Augmentin 875-125 Tablet] 1 tab PO BID 10 Days #20 tab 12/29/19 [Rx] Follow up Appointment(s)/Referral(s): Myron Galo MD [REFERRING] - 01/06/20 2:00 pm Talisha Rojas MD [Family Provider] - 01/07/20 4:30 pm (patient has appointment already scheduled) Patient Instructions/Handouts: Diverticulitis (ED), Low Fiber Diet (ED) Activity/Diet/Wound Care/Special Instructions: . Discharge Disposition: HOME SELF-CARE
== END 2019-12-29 14:13 | disposition home or self-care (01) | DRG 392 ==
LOC: EC 07:04 → 4SSUR 10:16
PROVIDERS: ADMIT Hospitalist; ATTEND Hospitalist
DX: K57.32 Diverticulitis of large intestine without perforation or abscess without bleeding (principal); I10 Essential (primary) hypertension; K21.9 Gastro-esophageal reflux disease without esophagitis; F32.9 Major depressive disorder, single episode, unspecified; E78.5 Hyperlipidemia, unspecified; F41.9 Anxiety disorder, unspecified; J45.909 Unspecified asthma, uncomplicated; M19.90 Unspecified osteoarthritis, unspecified site; K59.00 Constipation, unspecified; Z90.49 Acquired absence of other specified parts of digestive tract; Z90.710 Acquired absence of both cervix and uterus; Z79.899 Other long term (current) drug therapy; Z88.1 Allergy status to other antibiotic agents; Z88.5 Allergy status to narcotic agent; Z88.2 Allergy status to sulfonamides; Z88.8 Allergy status to other drugs, medicaments and biological substances; Z98.890 Other specified postprocedural states; Z80.0 Family history of malignant neoplasm of digestive organs; Z87.891 Personal history of nicotine dependence
CPT/HCPCS: 36415; 74018; 74177; 80048; 80053; 81001; 82150; 83605; 83690; 85025; 87040; 96361; 96365; 99285

== ENCOUNTER → 2020-01-15 | Outpatient (CLI) | payer BC ==
--- NOTE | 2020-01-19 14:04 | MM ---
Reason for exam: screening (asymptomatic). Last mammogram was performed 1 year and 4 months ago. History: Patient is postmenopausal. Family history of breast cancer in maternal grandmother. Took estrogen for 4 years beginning at age 34. Physical Findings: A clinical breast exam by your physician is recommended on an annual basis and results should be correlated with mammographic findings. MG 3D Screening Mammo W/Cad Bilateral CC, MLO, and XCCL view(s) were taken. Prior study comparison: September 20, 2018, bilateral MG 3d diag mammo w/cad SUM[facility]. September 14, 2017, bilateral MG 3d screening mammo w/cad. There are scattered fibroglandular densities. No significant changes when compared with prior studies. ASSESSMENT: Benign, BI-RAD 2 RECOMMENDATION: Routine screening mammogram of both breasts in 1 year.
== END | disposition home or self-care (01) ==
LOC: RADMAMWWP 12:46
PROVIDERS: ATTEND Family Medicine
DX: Z12.31 Encounter for screening mammogram for malignant neoplasm of breast (principal)
CPT/HCPCS: 77063; 77067

== ENCOUNTER → 2020-01-23 | Outpatient (CLI) | payer BC ==
--- NOTE | 2020-01-26 06:42 | BD ---
EXAMINATION TYPE: Axial Bone Density DATE OF EXAM: 01/23/2020 COMPARISON: DEXA bone scan 2013. CLINICAL HISTORY: Postmenopausal female. Height: 64.5 Weight: 145.5 FRAX RISK QUESTIONS: Alcohol (3 or more units per day): no Family History (Parent hip fracture): no Glucocorticoids (More than 3mos): no (Ex: prednisone, prednisolone, methylprednisolone, dexamethasone, and hydrocortisone). History of Fracture in Adulthood: no Secondary Osteoporosis: 1. Type 1 Diabetes: no 2. Hyperthyroidism: no 3. Menopause before 45: yes 4. Malnutrition: no 5. Chronic liver disease: no Rheumatoid Arthritis: no Current Tobacco Use: no RISK FACTORS HISTORY OF: Family History of Osteoporosis: no Active: yes Diet low in dairy products/other sources of calcium: no Postmenopausal woman: around age 39 Lost more than 2 inches in height since high school: no MEDICATIONS: Ativan, Lexapro, Nexium, Restasis, lisinopril Additional History: EXAM MEASUREMENTS: Bone mineral densitometry was performed using the BookBag System. Bone mineral density as measured about the Lumbar spine is: ----- L1-L4(G/cm2): 1.118 T Score Values are as follows: ----- L2: -1.3 ----- L3: -0.8 ----- L4: 0.5 ----- L1-L4: -0.5 Bone mineral density has: increased -0.5 % since study of: 04.10.2013 Bone mineral density about the R hip (g/cm2): 0.797 Bone mineral density about the L hip (g/cm2): 0.850 T Score values are as follows: -----R Neck: -1.7 -----L Neck: -1.4 -----R Total: -1.1 -----L Total: -0.6 Bone mineral density has: decreased -1.3 % since study of: 04.10.2013 IMPRESSION: Osteopenia (T Score between -2.5 and -1) remains present. There remains slightly increased risk of fracture and the patient may be considered for treatment. Re-Screen 2-5 years. NOTE: T-SCORE=SD OF THE YOUNG ADULT MEAN.
== END | disposition home or self-care (01) ==
LOC: RADBDWWP 16:13
PROVIDERS: ATTEND Family Medicine
DX: Z13.820 Encounter for screening for osteoporosis (principal); M85.80 Other specified disorders of bone density and structure, unspecified site; Z78.0 Asymptomatic menopausal state
CPT/HCPCS: 77080

== ENCOUNTER → 2020-04-26 | Outpatient (CLI) | payer BC ==
--- NOTE | 2020-04-26 14:34 | US ---
EXAMINATION TYPE: US groin LT DATE OF EXAM: 04/26/2020 COMPARISON: NONE CLINICAL HISTORY: R10.2 Pelvic Pain. Left groin pain Multiple lymph nodes visualized, largest visualized measuring 1.3 x 0.6 x 0.7 IMPRESSION: Left groin lymph nodes as discussed above. Correlate clinically.
--- NOTE | 2020-04-27 14:19 | US ---
EXAMINATION TYPE: US groin RT DATE OF EXAM: 04/26/2020 COMPARISON: US 08/18/2015 CLINICAL HISTORY: R10.2 Pelvic Pain. Right groin pain Multiple probable lymph nodes visualized, largest measuring 1.1 x 0.6 x 0.7 cm IMPRESSION: Multiple lymph nodes in the region of the right groin.
== END | disposition home or self-care (01) ==
LOC: RADUSWWP 13:49
PROVIDERS: ATTEND Family Medicine
DX: R59.1 Generalized enlarged lymph nodes (principal); R10.2 Pelvic and perineal pain

== ENCOUNTER → 2020-05-06 | Outpatient (CLI) | payer BC ==
--- NOTE | 2020-05-06 14:16 | CT ---
EXAMINATION TYPE: CT abdomen pelvis w con DATE OF EXAM: 05/06/2020 COMPARISON: December 26, 2019 HISTORY: Non Hodgkins lymphoma CT DLP: 611.10 mGycm CONTRAST: CT scan of the abdomen and pelvis is performed without Oral Contrast and with IV Contrast, patient in jected with 100 mL of Isovue 300. FINDINGS: LUNG BASES-: No visible nodule. No infiltrate. LIVER/GB: No calcified gallstones. No space occupying hepatic lesion. Biliary tree is of normal ca liber. PANCREAS: No inflammation. No distinct mass. SPLEEN: No splenic enlargement. No lesion seen. ADRENALS: No nodule. No thickening. KIDNEYS/BLADDER: No hydronephrosis. No nephrolithiasis. No distinct renal mass. Urinary bladder g rossly unremarkable. BOWEL: Normal appendix. Normal bowel caliber. No inflammation. GENITAL ORGANS: No gross abnormality. LYMPH NODES: No greater than 1cm abdominal or pelvic lymph nodes are appreciated. AORTA: No significant abnormality. OSSEOUS STRUCTURES: No significant abnormality is seen. OTHER: No significant additional abnormality is seen. IMPRESSION: 1. No evidence for adenopathy at this time.
== END | disposition home or self-care (01) ==
LOC: RADCTMAIN 11:55
PROVIDERS: ATTEND Family Medicine
DX: C85.85 Other specified types of non-Hodgkin lymphoma, lymph nodes of inguinal region and lower limb (principal)
CPT/HCPCS: 74177; 36415; Q9967 ×2

== ENCOUNTER 2020-08-24 11:14 | Day surgery (SDC) | payer BC ==
[2020-08-20 10:08] VITALS: BMI 24.1
[~2020-08-24 11:14] MED LIST changes: -LIDOCAINE 1% 20 ML VIAL (10MG/ML) FOR IV START INTRADERMA PRN
[2020-08-24 11:28] VITALS: TEMP 97.8
[2020-08-24] MEDS ORDERED: LACTATED RINGERS 1,000 ML IV ONE (11:36)
[2020-08-24] MEDS ORDERED: ROPIVACAINE 5MG/ML 20ML VIAL ONE (12:07)
[2020-08-24] MEDS ORDERED: fentaNYL (PF) 50 MCG/ML 2 ML AMP ONE (12:07)
[2020-08-24] MEDS ORDERED: MIDAZOLAM 2 MG/2 ML VIAL ONE (12:07)
[2020-08-24] MEDS ORDERED: IOPAMIDOL M200 10 ML VIAL ONE (12:07)
[2020-08-24] MEDS ORDERED: methylPREDNISolone ACETATE 40 MG/ML 1 ML VIAL ONE (12:07)
[2020-08-24] MEDS ORDERED: IV FLUID CONTINUATION 1,000 ML IV ONE (12:24)
[2020-08-24 12:26] VITALS: RESP 16
--- NOTE | 2020-08-24 12:28 | P.PCN ---
Date of Procedure: 08/24/20 Procedure(s) Performed: PREOPERATIVE DIAGNOSIS: Right hip osteoarthritis. Lumbar spondylosis POSTOPERATIVE DIAGNOSIS: same PROCEDURES: Right intra-articular hip injection with fluoroscopy (fluoroscopy images available in the radiology Department ) ANESTHESI=mmoderate sedation with Versed 2 mg and fentanyl 50 mcg . EBL: Minimal PROCEDURE INDICATION: The patient with left hip pain secondary to osteoarthritis who has been unresponsive to conservative therapy. No use of blood thinners. PROCEDURE DESCRIPTION / TECHNIQUE: The patient was seen and identified in the preoperative area. Risks, benefits, complications, and alternatives were discussed with the patient (including but not limited to incomplete pain relief, bleeding, infection, nerve damage, and allergies to medications), the patient agreed to proceed with the procedure and signed the consent after all questions were answered. Patient was taken to the OR and time out was completed to verify proper patient, position, laterality of pain, and allergies. Pt was placed in the supine position. IV was started. Vital signs remained stable throughout the procedure. The right groin,and hip area was prepped and draped in the usual sterile fashion. Vital signs were closely monitored during the procedure. Conscious sedation was used during the procedure to decrease patients anxiety. Using AP fluoroscopy, the femoral neck was identified, marked, and localized with 1% lidocaine. Subsequently, a 22 gauge 3.5-inch spinal needle was advanced guided by fluoroscopy to the 11 o'clock position on the femoral neck until the needle was felt entering the hip capsule. IVP dye, contrast was injected to demonstrate an arthrogram. After negative aspiration for CSF or heme and in the absence of paresthesias, the full 8 ml ml of the block solution containing Depo- medrol 40 mg and 8 mL of preservative-free 0.5% Ropivacaine was injected. At the end of the procedure, the skin was cleansed and bandages were applied. COMPLICATIONS: No acute complications. DISPOSITION / PLANS: The patient was placed in a supine position and transferred to the recovery area in a stable condition for observation and was discharged from the recovery room after meeting discharge criteria. Home discharge instructions given to the patient by the staff. The patient was reexamined prior to discharge and she had significant relief. The patient will schedule a follow up in the clinic in 2-4 weeks to discuss efficacy and possible surgical referral for hip OA. I will give the patient prescription for Lyrica 75 mg twice a day and also will send her to have an x-ray done on the left hip to assess the intensity of the osteoarthritis.
[2020-08-24 12:42] VITALS: BP 109/70; PULSE 73
--- NOTE | 2020-08-24 14:52 | FL ---
Fluoroscopy HISTORY: Pain 6 seconds fluoroscopy time supplied to the referring clinician. 1 intraoperative C-arm images docume nt the procedure. See dictated report from anesthesia.
== END 2020-08-24 12:54 | disposition home or self-care (01) ==
LOC: ORPAIN 11:14
PROVIDERS: ATTEND Specialist
DX: M16.11 Unilateral primary osteoarthritis, right hip (principal); M47.816 Spondylosis without myelopathy or radiculopathy, lumbar region; Z88.8 Allergy status to other drugs, medicaments and biological substances; Z90.710 Acquired absence of both cervix and uterus
CPT/HCPCS: 20610; J2250; J1030; J3010; Q9966; J2795; 99152

== ENCOUNTER 2020-09-09 11:41 | Day surgery (SDC) | payer BC ==
[2020-09-08 11:55] VITALS: BMI 24.1
[2020-09-09 12:01] VITALS: TEMP 97.7
[2020-09-09] MEDS ORDERED: LACTATED RINGERS 1,000 ML IV ONE (12:02)
[2020-09-09] MEDS ORDERED: MIDAZOLAM 2 MG/2 ML VIAL ONE (12:40)
[2020-09-09] MEDS ORDERED: fentaNYL (PF) 50 MCG/ML 2 ML AMP ONE (12:40)
[2020-09-09] MEDS ORDERED: TRIAMCINOLONE ACETONIDE 40 MG/ML 1 ML VIAL ONE (12:40)
[2020-09-09] MEDS ORDERED: ROPIVACAINE 5MG/ML 20ML VIAL ONE (12:40)
--- NOTE | 2020-09-09 12:47 | P.PCN ---
Date of Procedure: 09/09/20 Surgeon: Nataliia Cloud Pathology: none sent Condition: stable Disposition: PACU Description of Procedure: Pre OP diagnoses= right greater trochanteric bursitis . Postoperative diagnosis= right greater trochanteric bursitis. Operation= trochanteric bursa steroid injection under fluoroscopy guidance. Anesthesia= IV sedation with Versed , fentanyl and local infiltration with lidocaine 1% 2 mL . Complications= none . Risks and benefits of the procedure including but not limited to risk of infection and bleeding and not complete pain relief and ALLERGIC reaction to medication discussed with the patient and the alternative also discussed with the patient and she agreed with proceding . Physical examination the preoperative area and the patient had no pain with internal and external rotation of the right hip joint but she has tenderness with palpation of the right greater trochanter bursa,therefore,decision was made to do right greater trochanter bursa steroid injection instead of intra- articular joint steroid injection. Patient was taken to the operating room placed in supine position , standard monitors applied , the hip area was prepped with chlorhexidine , and under sterile technique using 22-gauge needle for skin and subcutaneous tissue infiltration and 22-gauge Quincke-type spinal needle advanced slowly under fluoroscopy to contact bone of the greater trochanter. Needle placement was confirmed with AP and lateral view . 4 ML of ropivacaine 0.5% mixed with 40 mg of Kenalog injected after negative aspiration . there was no paresthesia during the injection ,needle removed and a dressing applied.Patient tolerated the procedure well without any complication and she will follow up with the pain clinic in a few weeks P Patient discharged home in stable condition
[2020-09-09] MEDS ORDERED: IV FLUID CONTINUATION 1,000 ML IV ONE (12:56)
[2020-09-09] MEDS ORDERED: NITROGLYCERIN-D5W PMX 50 MG in DEXTROSE/WATER 1 250ML.BAG IV ONE (12:56)
[2020-09-09 12:58] VITALS: RESP 16
[2020-09-09 13:06] VITALS: BP 131/79; PULSE 67
--- NOTE | 2020-09-09 13:18 | FL ---
EXAMINATION TYPE: FL guided pain mgmt statistic DATE OF EXAM: 09/09/2020 HISTORY: Fluoroscopy time 1 seconds of fluoroscopy provided. IMPRESSION: 1. Fluoroscopy time.
== END 2020-09-09 13:14 | disposition home or self-care (01) ==
LOC: ORPAIN 11:41
PROVIDERS: ATTEND Anesthesiology
DX: M70.61 Trochanteric bursitis, right hip (principal)
CPT/HCPCS: 20610; J2250; J3301; J3010; J2795

== ENCOUNTER → 2021-01-20 | Outpatient (CLI) | payer BC | END | disposition home or self-care (01) | LOC: LABWHC1 12:10 | PROVIDERS: ATTEND Family Medicine | DX: Z20.822 Contact with and (suspected) exposure to COVID-19 (principal) | CPT/HCPCS: U0003; C9803; U0005 ==

== ENCOUNTER → 2021-07-11 | Outpatient (CLI) | payer BC ==
--- NOTE | 2021-07-13 08:39 | MM ---
Reason for exam: screening (asymptomatic). Last mammogram was performed 1 year and 6 months ago. History: Patient is postmenopausal. Family history of breast cancer in maternal grandmother. Took estrogen for 4 years beginning at age 34. Physical Findings: A clinical breast exam by your physician is recommended on an annual basis and results should be correlated with mammographic findings. MG 3D Screening Mammo W/Cad Bilateral CC and MLO view(s) were taken. Prior study comparison: January 15, 2020, bilateral MG 3d screening mammo w/cad. September 20, 2018, bilateral MG 3d diag mammo w/cad [facility]. The breast tissue is heterogeneously dense. This may lower the sensitivity of mammography. Focal asymmetry left upper outer quadrant. This finding is changed when compared with previous exams. ASSESSMENT: Incomplete: need additional imaging evaluation, BI-RAD 0 RECOMMENDATION: Special view mammogram of the left breast. If lesion persists on supplemental views, image directed ultrasound is recommended. [facility] will attempt to contact patient to return for supplemental views and ultrasound if indicated.
== END | disposition home or self-care (01) ==
LOC: RADMAMWWP 09:36
PROVIDERS: ATTEND Family Medicine
DX: Z12.39 Encounter for other screening for malignant neoplasm of breast (principal)
CPT/HCPCS: 77063; 77067

== ENCOUNTER → 2021-07-11 | Outpatient (CLI) | payer BC ==
--- NOTE | 2021-07-11 10:46 | US ---
EXAMINATION TYPE: US groin LT DATE OF EXAM: 07/11/2021 COMPARISON: US CLINICAL HISTORY: R10.30 LOWER ABDOMINAL PAIN. Pt states pain within left groin with a bulge appearan ce especially when walking Non-peristalsing bowel loop visualized within left groin in area of pt's pain and bulge ?hernia- va lsalva maneuver performed during exam IMPRESSION: Hernia as noted.
== END | disposition home or self-care (01) ==
LOC: RADUSWWP 09:33
PROVIDERS: ATTEND Family Medicine
DX: K46.9 Unspecified abdominal hernia without obstruction or gangrene (principal)

== ENCOUNTER → 2021-07-15 | Outpatient (CLI) | payer BC ==
--- NOTE | 2021-07-15 14:39 | MM ---
Reason for exam: additional evaluation requested from abnormal screening. Last mammogram was performed less than 1 month ago. History: Patient is postmenopausal. Family history of breast cancer in maternal grandmother. Took estrogen for 4 years beginning at age 34. Physical Findings: A clinical breast exam by your physician is recommended on an annual basis and results should be correlated with mammographic findings. MG 3D Work Up W/Cad LT CC and MLO view(s) were taken of the left breast. Prior study comparison: July 11, 2021, bilateral MG 3d screening mammo w/cad. January 15, 2020, bilateral MG 3d screening mammo w/cad. There are scattered fibroglandular densities. There is no discrete abnormality including area of concern. No significant new findings when compared with previous films. Results were given to the patient verbally at the time of the exam. ASSESSMENT: Benign, BI-RAD 2 RECOMMENDATION: Return to routine screening mammogram schedule for both breasts.
== END | disposition home or self-care (01) ==
LOC: RADMAMWWP 13:30
PROVIDERS: ATTEND Family Medicine
DX: R92.8 Other abnormal and inconclusive findings on diagnostic imaging of breast (principal)
CPT/HCPCS: 77061; 77065

== ENCOUNTER → 2022-02-28 | Outpatient (CLI) | payer MEDICARE ==
--- NOTE | 2022-02-28 13:56 | MM ---
Reason for Exam: Clinical finding. Last screening mammogram was performed 8 month(s) ago. Indicated Problems: Nipple abnormality of the right side. Patient History: Menarche at age 11. First Full-Term at age 17. Left ovary removed at age 40. Right ovary removed at age 40. Hysterectomy at age 34. Postmenopausal. Estrogen for 4 years from age 34 until age 38. Maternal grandmother had breast cancer. Risk Values: Lisa 5 year model risk: 1.2%. NCI Lifetime model risk: 4.2%. Prior Study Comparison: 01/15/2020 Bilateral Screening Mammogram, [facility]. 07/11/2021 Bilateral Screening Mammogram, [facility]. 07/15/2021 Left Diagnostic Mammogram, [facility]. Tissue Density: Right: The breast tissue is heterogeneously dense. This may lower the sensitivity of mammography. Findings: Analyzed By CAD. No new suspicious mass or worrisome cluster of microcalcifications within the right breast. Benign-appearing calcifications within the right breast. Overall Assessment: Incomplete: need additional imaging evaluation, BI-RAD 0 Management: Diagnostic Breast Ultrasound of the right breast. A clinical breast exam by your physician is recommended on an annual basis and results should be correlated with mammographic findings. This exam should not preclude additional follow-up of suspicious palpable abnormalities. Results were given to the patient verbally at the time of exam. Electronically signed and approved by: Rodrigo Rosa D.O.
--- NOTE | 2022-02-28 14:12 | USB ---
Reason for Exam: Clinical finding. Patient History: Menarche at age 11. First Full-Term at age 17. Left ovary removed at age 40. Right ovary removed at age 40. Hysterectomy at age 34. Postmenopausal. Estrogen for 4 years from age 34 until age 38. Maternal grandmother had breast cancer. Risk Values: Lisa 5 year model risk: 1.2%. NCI Lifetime model risk: 4.2%. Technique: Method: Targeted. Prior Study Comparison: 01/15/2020 Bilateral Screening Mammogram, [facility]. 07/11/2021 Bilateral Screening Mammogram, [facility]. 07/15/2021 Left Diagnostic Mammogram, [facility]. Findings: The periareolar of the right breast and the retroareolar of the right breast were scanned. Targeted ultrasound of the right subareolar region was performed with demonstration of mildly prominent distended ducts. No focal intraductal lesion identified. Overall Assessment: Benign, BI-RAD 2 Management: Screening Mammogram of both breasts in 1 year. A clinical breast exam by your physician is recommended on an annual basis and results should be correlated with mammographic findings. This exam should not preclude additional follow-up of suspicious palpable abnormalities. Results were given to the patient verbally at the time of exam. Electronically signed and approved by: Rodrigo Rosa D.O.
== END | disposition home or self-care (01) ==
LOC: RADMAMWWP 13:24
PROVIDERS: ATTEND Family Medicine
DX: N64.59 Other signs and symptoms in breast (principal); Z80.3 Family history of malignant neoplasm of breast; Z78.0 Asymptomatic menopausal state
CPT/HCPCS: 77065; 76642; G0279; 77061

== ENCOUNTER → 2022-06-08 | Outpatient (CLI) | payer MEDICARE ==
[2022-06-08 13:09] VITALS: BP 118/75; PULSE 69; RESP 17; TEMP 98.3
--- NOTE | 2022-06-08 13:38 | P.GSHP ---
History of Present Illness H&P Date: 06/08/22 Chief Complaint: abnormal right breast mammogram Katia is a 66 year old white female seen in consultation for Dr. Maldonado regarding a change in her right nipple area. She had a bilateral mammogram on 07-11-21 which led to a left breast diagnostic mammogram on , repeat in one year recommended. She had a right breast mammogram and ultrasound on 02-28-22 which showed some dilated ducts on the right side, but felt to be BIRAD 2 and repeat in 1 year. The right nipple became inverted several months ago. She is not complaining of any lumps masses or nodules. She did not have any trauma or infection in the breast. She also complains of itching at times. She has not had any surgery on either breast. Caffiene: 3 cups/day nicotine: none; stopped 38 years ago smoked for 10 years 1 pack/week BCP: none hormones: estrogen pill for 2 years chocolate: weekly Family History: maternal grandmother: breast cancer mother: colon cancer Hormonal History: menarche: 10 , breast fed: no, age at first : 17 menopause: bilateral oophrectomy at different times in late 30's, followed by hysterectomy done for endometriosis Surgical History: bilateral oophrectomy hysterectomy ovarian cyst bowel resection hernia abdominoplasty Medical History: asthma HTN GERD anxiety depression Social History: smoke: none; as above alcohol: none drugs:none - Constitutional Constitutional: Denies chills, Denies fever - EENT Eyes: denies blurred vision, denies pain Ears: deny: decreased hearing, tinnitus Ears, nose, mouth and throat: Reports headache, Denies sore throat - Breasts Breasts: bilateral: as per HPI - Cardiovascular Cardiovascular: Denies chest pain, Denies shortness of breath - Respiratory Respiratory: Denies cough, Denies 7 - Gastrointestinal Gastrointestinal: Denies abdominal pain, Denies nausea, Denies vomiting - Genitourinary (Female) Genitourinary: Denies dysuria, Denies hematuria - Menstruation Menstruation: Reports post hysterectomy - Musculoskeletal Comment: back pain Musculoskeletal: Denies myalgias - Integumentary Integumentary: Denies pruritus, Denies rash - Neurological Neurological: Denies numbness, Denies weakness - Psychiatric Psychiatric: Reports anxiety, Reports depression - Endocrine Endocrine: Denies fatigue, Denies weight change - Hematologic/Lymphatic Comment: none - Allergic/Immunologic Allergic/Immunologic: Reports seasonal allergies Past Medical History Past Medical History: Asthma, GERD/Reflux, Hyperlipidemia, Hypertension, Osteoarthritis (OA), Seizure Disorder Additional Past Medical History / Comment(s): SEIZURE -LAST SEIZURE AT AGE 30, "INCOMPLETE RIGHT BUNDLE BRANCH BLOCK." Had 1st Covid Vacccine. History of Any Multi-Drug Resistant Organisms: None Reported Past Surgical History: Bowel Resection, Hernia Repair, Hysterectomy Additional Past Surgical History / Comment(s): BOWEL RESECTION, BLADDER REPAIR, CYST REMOVED FROM OVARY. Past Anesthesia/Blood Transfusion Reactions: No Reported Reaction Past Psychological History: Anxiety, Depression Smoking Status: Former smoker Past Alcohol Use History: Rare Additional Past Alcohol Use History / Comment(s): STARTED SMOKING AT 16, QUIT AT AGE 29, SMOKED ON AND OFF, 1/2PPD. Past Drug Use History: None Reported - Past Family History Mother Family Medical History: Cancer Additional Family Medical History / Comment(s): COLON CANCER. Father Family Medical History: Unable to Obtain Additional Family Medical History / Comment(s): Pt adopted. Medications and Allergies Home Medications Medication Instructions Recorded Confirmed Type Escitalopram Oxalate [Lexapro] 10 mg PO DAILY 12/06/15 06/08/22 History LORazepam [Ativan] 1 mg PO BID PRN 12/06/15 06/08/22 History Esomeprazole Magnesium [NexIUM] 40 mg PO DAILY 05/23/17 06/08/22 History lisinopriL [Zestril] 5 mg PO DAILY 05/23/17 06/08/22 History cycloSPORINE [Restasis Multidose] 1 drop BOTH EYES BID 12/26/19 06/08/22 History Albuterol Sulfate [Proair Hfa] 1 - 2 puff INHALATION Q6HR PRN 08/20/20 06/08/22 History Ascorbic Acid [Vitamin C] 1,000 mg PO DAILY 09/08/20 06/08/22 History Cholecalciferol [Vitamin D3 (25 50 mcg PO DAILY 09/08/20 06/08/22 History Mcg = 1000 Iu)] Zinc 50 mg PO DAILY 09/08/20 06/08/22 History Allergies Allergy/AdvReac Type Severity Reaction Status Date / Time codeine Allergy FLUSHED Verified 06/08/22 13:02 levofloxacin [From Levaquin] Allergy Nausea & Verified 06/08/22 13:02 Vomiting Sulfa (Sulfonamide Allergy Unknown Verified 06/08/22 13:02 Antibiotics) theophylline Allergy Rapid Verified 06/08/22 13:02 Heart Rate Surgical - Exam Vital Signs Temp Pulse Resp BP Pulse Ox 98.3 F 69 17 118/75 100 06/08/22 13:06 06/08/22 13:06 06/08/22 13:06 06/08/22 13:06 06/08/22 13:06 BMI: 25.6 - General no distress - Eyes normal ocular movement - Neck trachea midline - Respiratory normal respiratory effort, clear to auscultation - Cardiovascular Rhythm: regular Heart Sounds: normal: S1, S2 - Abdomen Abdomen: soft, non tender, no guarding, no rigid, no rebound - Integumentary normal turgor - Neurologic no disoriented, no combative - Musculoskeletal normal gait, normal posture - Psychiatric oriented to time, oriented to person, oriented to place, speech is normal, memory intact Breast Exam: BRA: 36DD Inspection: Right nipple retracted, bilateral grade 3 ptosis Palpation: Right breast: Multi-positional exam fibrocystic changes right nipple retracted no dominant masses or nodules of concern question of a small area of nodularity behind the nipple areolar complex on the right Right axilla: No adenopathy of concern Left breast: Multi-positional exam fibrocystic changes no dominant masses or nodules of concern Left axilla: No adenopathy of concern Results Mammogram and ultrasound of the right breast reviewed from 02-28-2022; report reviewed of bilateral mammogram from June 2020 Assessment and Plan Assessment: Impression: Right nipple inversion Fibrocystic breast changes Family history of cancer Plan: Bilateral mammogram with a right breast ultrasound Follow-up at the time of her repeat diagnostic studies of the breast Cc: Dr. Maldonado
== END ==
LOC: WWCWWP 12:53
PROVIDERS: ATTEND Surgery
DX: R92.8 Other abnormal and inconclusive findings on diagnostic imaging of breast (principal); N60.11 Diffuse cystic mastopathy of right breast; E78.5 Hyperlipidemia, unspecified; I10 Essential (primary) hypertension; J45.909 Unspecified asthma, uncomplicated; K21.9 Gastro-esophageal reflux disease without esophagitis; M19.90 Unspecified osteoarthritis, unspecified site; G40.909 Epilepsy, unspecified, not intractable, without status epilepticus; Z87.891 Personal history of nicotine dependence; Z88.2 Allergy status to sulfonamides; Z88.1 Allergy status to other antibiotic agents; Z86.16 Personal history of COVID-19; Z88.8 Allergy status to other drugs, medicaments and biological substances; Z88.5 Allergy status to narcotic agent

== ENCOUNTER → 2022-07-27 | Outpatient (CLI) | payer MEDICARE ==
--- NOTE | 2022-07-27 11:39 | MM ---
Reason for Exam: Clinical finding. Last mammogram was performed 1 year(s) and 1 month(s) ago. Patient History: Menarche at age 11. First Full-Term at age 17. Left ovary removed at age 40. Right ovary removed at age 40. Hysterectomy at age 34. Postmenopausal. Estrogen for 4 years from age 34 until age 38. Maternal grandmother had breast cancer. Risk Values: Lisa 5 year model risk: 1.2%. NCI Lifetime model risk: 4.0%. Prior Study Comparison: 10/19/1989 Screening Mammogram, Unknown. 12/28/1994 Screening Mammogram, Unknown. 09/14/2017 Bilateral Screening Mammogram, [facility]. 09/20/2018 Bilateral Diagnostic Mammogram, [facility]. 01/15/2020 Bilateral Screening Mammogram, [facility]. 07/11/2021 Bilateral Screening Mammogram, [facility]. 07/15/2021 Left Diagnostic Mammogram, [facility]. 02/28/2022 Right MG 3D diag mammo w/cad RT, [facility]. 02/28/2022 Right US breast limited RT, [facility]. Tissue Density: The breast tissue is heterogeneously dense. This may lower the sensitivity of mammography. Findings: Analyzed By CAD. There are scattered and loosely grouped benign-appearing round and linear calcifications throughout the bilateral breasts. Additional spot magnification views of the subareolar region right breast show no distinct suspicious group of microcalcifications or new focal mass. Overall Assessment: Incomplete: need additional imaging evaluation, BI-RAD 0 Management: Diagnostic Breast Ultrasound of the right breast. Targeted ultrasound subareolar region right breast. Results were given to the patient verbally at the time of exam. Patient should continue monthly self-breast exams. A clinical breast exam by your physician is recommended on an annual basis. This exam should not preclude additional follow-up of suspicious palpable abnormalities. Note on Lisa scores and lifetime risk: 1. A Lisa score greater than 3% is considered moderate risk. If this is the case, consider specialist referral to assess eligibility for a risk reducing agent. 2. If overall lifetime risk for the development of breast cancer is 20% or higher, the patient may qualify for future screening with alternating mammogram and breast MRI. Electronically signed and approved by: Erick Andrade M.D.
--- NOTE | 2022-07-27 12:24 | USB ---
Patient History: Menarche at age 11. First Full-Term at age 17. Left ovary removed at age 40. Right ovary removed at age 40. Hysterectomy at age 34. Postmenopausal. Estrogen for 4 years from age 34 until age 38. Maternal grandmother had breast cancer. Risk Values: Lisa 5 year model risk: 1.2%. NCI Lifetime model risk: 4.0%. Technique: Method: Whole Breast Handheld. Patient Position: Supine. Prior Study Comparison: 07/11/2021 Bilateral Screening Mammogram, [facility]. 07/15/2021 Left Diagnostic Mammogram, [facility]. 02/28/2022 Right MG 3D diag mammo w/cad RT, [facility]. Findings: The whole breast of the right breast, the axilla of the right breast and the retroareolar of the right breast were scanned. A complete US of all four quadrants of the breast and retro-areolar region were reviewed. No solid or cystic masses are identified on images saved including particular attention to the subareolar region where there are prominent ducts. No focal fluid collection. Overall Assessment: Negative, BI-RAD 1 Management: Screening Mammogram of both breasts in 1 year. Surgical evaluation due to patient's symptoms. Patient may benefit with MRI evaluation. Electronically signed and approved by: Erick Andrade M.D.
== END | disposition home or self-care (01) ==
LOC: RADMAMWWP 10:54
PROVIDERS: ATTEND Surgery
DX: N63.10 Unspecified lump in the right breast, unspecified quadrant (principal); N63.20 Unspecified lump in the left breast, unspecified quadrant; R92.8 Other abnormal and inconclusive findings on diagnostic imaging of breast; Z78.0 Asymptomatic menopausal state; Z80.3 Family history of malignant neoplasm of breast
CPT/HCPCS: 77066; 76641; G0279; 77062

== ENCOUNTER → 2022-07-27 | Outpatient (CLI) | payer MEDICARE ==
[2022-07-27 12:25] VITALS: BP 137/73; PULSE 75; RESP 17; TEMP 98
--- NOTE | 2022-07-27 13:34 | P.PN ---
Subjective Progress Note Date: 07/27/22 Principal diagnosis: abnormal nipple inversion on the right Katia is a 66 year old white female seen in consultation for Dr. Maldonado regarding a change in her right nipple area. She had a bilateral mammogram on 07-11-21 which led to a left breast diagnostic mammogram on 07-15-21, repeat in one year recommended. She had a right breast mammogram and ultrasound on 02-28-22 which showed some dilated ducts on the right side, but felt to be BIRAD 2 and repeat in 1 year. The right nipple became inverted several months ago. She is not complaining of any lumps masses or nodules. She did not have any trauma or infection in the breast. She also complains of itching at times. She has not had any surgery on either breast. ultrasound behind the right nipple area preformed on 07-27-22; this did not show any lesions of concern her mammogram was reviewed with Dr. Andrade who recommended a stero biopsy of calcifications near the right nipple complex Impression: calcifications near the right nipple complex/recommend biopsy as per radiology inversion of the right nipple Plan: right breast stero biopsy, secondary to the location we may not be able to do a stereo biopsy in which case a right breast needle localization and excision would be recommended CC: Dr. Maldonado Objective - Vital Signs Vital signs: Vital Signs Temp 98 F 07/27/22 12:23 Pulse 75 07/27/22 12:23 Resp 17 07/27/22 12:23 BP 137/73 07/27/22 12:23 Pulse Ox 100 07/27/22 12:23 FiO2 Intake & Output 07/26/22 07/27/22 07/27/22 18:59 06:59 18:59 Weight 66.224 kg
== END ==
LOC: WWCWWP 10:52
PROVIDERS: ATTEND Surgery
DX: C50.011 Malignant neoplasm of nipple and areola, right female breast (principal); Z88.5 Allergy status to narcotic agent; Z88.1 Allergy status to other antibiotic agents; Z88.2 Allergy status to sulfonamides; Z88.6 Allergy status to analgesic agent; Z87.891 Personal history of nicotine dependence

== ENCOUNTER → 2022-08-17 | Outpatient (CLI) | payer MEDICARE ==
--- NOTE | 2022-08-21 18:07 | MR ---
EXAMINATION TYPE: MR knee RT wo con DATE OF EXAM: 08/17/2022 COMPARISON: None HISTORY: 67-year-old female M25.561 Right knee pain, S/P fall 2 months ago. TECHNIQUE: Multiplanar, multisequence imaging of the right knee is performed without IV contrast. FINDINGS: The ACL, PCL, and LCL complex is intact. Mild increased signal on either side of the intact MCL fibers. There is a large oblique tear of the medial meniscus extending from the junction of the posterior hor n and body and through the meniscal body. Mild to moderate irregular cartilage thinning throughout the mid central and mid weightbearing aspect of the medial compartment. No high-grade cartilage injury is seen. Lateral meniscus is intact. Overall lateral compartment articular cartilage volume is maintained. Mild to moderate thinning of articular cartilage along both medial and lateral patellar facets. No hi gh-grade chondral injury is seen. Extensor mechanism is intact. Ixfxe-us-[id number] knee joint effusion. Trace early Whatley's cyst measuri ng 1.6 cm. Incidental ganglion cyst measuring 1.4 x 1.2 cm at the origin of the medial head gastrocne mius. Normal popliteal artery anatomy. Mild generalized muscle atrophy. No suspicious bone marrow replaceme nt. IMPRESSION: 1. Large oblique tear extending throughout the body of the medial meniscus posteriorly to involve the junction of the body and posterior horn. 2. Grade 1 MCL sprain. 3. Mild overall degenerative change within the medial and patellofemoral compartments of the knee. 4. Small to moderate knee joint effusion and trace early Whatley cyst.
== END | disposition home or self-care (01) ==
LOC: RADMRIMAIN 12:42
PROVIDERS: ATTEND Orthopaedic Surgery
DX: S83.241D Other tear of medial meniscus, current injury, right knee, subsequent encounter (principal); S83.411A Sprain of medial collateral ligament of right knee, initial encounter; M25.461 Effusion, right knee; M17.11 Unilateral primary osteoarthritis, right knee

== ENCOUNTER 2022-09-13 12:04 | Day surgery (SDC) | payer MEDICARE ==
[2022-09-13] MEDS ORDERED: LACTATED RINGERS 1,000 ML IV ONE (12:44)
[2022-09-13 12:51] VITALS: TEMP 97.9
[2022-09-13] MEDS ORDERED: LIDOCAINE 2% INJ 20 MG/ML (2 ML VIAL) ONE (13:44)
[2022-09-13] MEDS ORDERED: PROPOFOL 10 MG/ML 20 ML VIAL IV ONE (13:44)
--- NOTE | 2022-09-13 14:11 | P.PCN ---
Date of Procedure: 09/13/22 Procedure(s) Performed: BRIEF HISTORY: Patient is a 67-year-old pleasant at female scheduled for an elective colonoscopy as a part of value should prior history of colon polyps. Last colonoscopy was 5 years ago. PROCEDURE PERFORMED: Colonoscopy with snare polypectomy. PREOPERATIVE DIAGNOSIS: History of colon polyps. IV sedation per Anesthesia. PROCEDURE: After informed consent was obtained, the patient, was brought into the endoscopy unit. IV sedation was administered by Anesthesia under continuous monitoring. Digital rectal examination was normal. Initially the Olympus CF-160 flexible video colonoscope was then inserted in the rectum, gradually advanced into the cecum with moderate to severe difficulty. Careful examination was performed as the scope was gradually being withdrawn. Ileocecal valve and the appendiceal orifice were visualized and appeared normal. Prep was excellent. Mucosa of the cecum, appeared normal. In the ascending colon there was a 5 mm and 1 cm polyp removed by snare polypectomy. Rest of the ascending colon, transverse colon, descending colon, sigmoid colon, and rectum appeared normal. Scattered sigmoid diverticulosis. Retroflexion was performed in the rectum and no lesions were seen. The patient tolerated the procedure well. IMPRESSION: 5 mm and 1 cm ascending colon polyp status post polypectomy Scattered sigmoid diverticulosis. RECOMMENDATIONS: Findings of this examination were discussed with the patient as well as her family. She was advised to follow with the biopsy results. If the biopsy reveals adenoma she can have a repeat colonoscopy in 3 years..
[2022-09-13 14:17] VITALS: RESP 16
[2022-09-13 14:30] VITALS: BP 119/75; PULSE 85
== END 2022-09-13 15:09 | disposition home or self-care (01) ==
LOC: ORWHC2ENDO 12:04
PROVIDERS: ATTEND Internal Medicine Gastroenterology
DX: Z12.11 Encounter for screening for malignant neoplasm of colon (principal); D12.2 Benign neoplasm of ascending colon; K57.30 Diverticulosis of large intestine without perforation or abscess without bleeding; I10 Essential (primary) hypertension; E78.5 Hyperlipidemia, unspecified; J45.909 Unspecified asthma, uncomplicated; M19.90 Unspecified osteoarthritis, unspecified site; G40.909 Epilepsy, unspecified, not intractable, without status epilepticus; K21.9 Gastro-esophageal reflux disease without esophagitis; Z79.51 Long term (current) use of inhaled steroids; Z79.899 Other long term (current) drug therapy; Z98.890 Other specified postprocedural states; Z88.2 Allergy status to sulfonamides; Z88.5 Allergy status to narcotic agent; Z86.010 Personal history of colon polyps; Z88.1 Allergy status to other antibiotic agents; Z88.8 Allergy status to other drugs, medicaments and biological substances
CPT/HCPCS: 88305; 45385; J2704; J2001

== ENCOUNTER 2022-09-13 20:15 | Inpatient (IN) | payer MEDICARE ==
[2022-09-13] MEDS ORDERED: PANTOPRAZOLE 40 MG/10 ML VIAL IVP STA (21:09)
[2022-09-13] MEDS ORDERED: TRANEXAMIC 1,000 MG/100ML-NACL 1,000 MG in SALINE 1 100ML.BAG IV STA (21:09)
[2022-09-13 21:27] LABS: Basophils # (A) 0.1 k/uL (0-0.2); Basophils % (A) 1 %; Eosinophils # (A) 0.1 k/uL (0-0.7); Eosinophils % (A) 1 %; HCT 38.3 % (34.0-46.0); HGB 12.3 gm/dL (11.4-16.0); Lymphocytes # (A) 3.7 k/uL (1.0-4.8); Lymphocytes % (A) 32 %; MCH 28.7 pg (25.0-35.0); MCHC 32.2 g/dL (31.0-37.0); MCV 89.1 fL (80.0-100.0); Mean Platelet Volume 6.9; Monocytes # (A) 0.7 k/uL (0-1.0); Monocytes % (A) 6 %; Neutrophils # (A) 6.9 k/uL (1.3-7.7); Neutrophils % (A) 59 %; Platelet Count 381 k/uL (150-450); RBC 4.29 m/uL (3.80-5.40); RDW 14.1 % (11.5-15.5); WBC 11.6 k/uL (3.8-10.6)
[2022-09-13 21:48] LABS: ALT 32 U/L (4-34); AST 29 U/L (14-36); African American GFR (CKD) 87 (>60 ml/min/1.73 sqM); Albumin 4.1 g/dL (3.5-5.0); Alkaline Phosphatase 90 U/L (38-126); Anion Gap 10 mmol/L; Blood Urea Nitrogen 12 mg/dL (7-17); Calcium 9.5 mg/dL (8.4-10.2); Carbon Dioxide 27 mmol/L (22-30); Chloride 100 mmol/L (98-107); Glucose 119 mg/dL (74-99); Non-African American GFR(CKD) 75 (>60 ml/min/1.73 sqM); Potassium 3.5 mmol/L (3.5-5.1); Sodium 137 mmol/L (137-145); Total Bilirubin 0.5 mg/dL (0.2-1.3); Total Protein 6.9 g/dL (6.3-8.2)
--- NOTE | 2022-09-13 22:21 | ED ---
GI Bleed HPI - General Chief complaint: GI Bleed Stated complaint: hemorrhaging-post colonoscopy Time Seen by Provider: 09/13/22 21:01 Source: patient, family Mode of arrival: ambulatory Limitations: no limitations - History of Present Illness Initial comments: This patient is 67-year-old woman who presents with complaint that she is passing large amounts of blood per rectum. Patient states that earlier this afternoon she had colonoscopy with 2 polyps removed. She had gone home and then little after 3 PM she began having a little bit of blood per rectum. She states that there has been a little bit of cramping and she'll pass more blood. She ray d a large bloody bowel movement and that prompted her to be seen here. Patient states that she was feeling lightheaded and sweaty. MD complaint: gross hematochezia -: minutes(s) Radiation: none Severity scale (1-10): 0 Quality: painless Improves with: none Worsens with: none Context: other Associated Symptoms: other - Related Data Home Medications Medication Instructions Recorded Confirmed Escitalopram Oxalate [Lexapro] 10 mg PO DAILY 12/06/15 09/14/22 LORazepam [Ativan] 1 mg PO HS 12/06/15 09/14/22 lisinopriL [Zestril] 5 mg PO DAILY 05/23/17 09/14/22 cycloSPORINE [Restasis Multidose] 1 drop BOTH EYES BID 12/26/19 09/14/22 Albuterol Sulfate [Proair Hfa] 1 - 2 puff INHALATION RT-Q6H PRN 08/20/20 09/14/22 Cholecalciferol [Vitamin D3 (25 50 mcg PO DAILY 09/08/20 09/14/22 Mcg = 1000 Iu)] Esomeprazole Magnesium [NexIUM] 40 mg PO DAILY 09/14/22 09/14/22 Allergies Allergy/AdvReac Type Severity Reaction Status Date / Time codeine Allergy FLUSHED Verified 09/11/22 14:40 levofloxacin [From Levaquin] Allergy Nausea & Verified 09/11/22 14:40 Vomiting Sulfa (Sulfonamide Allergy Unknown Verified 09/11/22 14:40 Antibiotics) theophylline Allergy Rapid Verified 09/11/22 14:40 Heart Rate Review of Systems ROS Statement: Those systems with pertinent positive or pertinent negative responses have been documented in the HPI. ROS Other: All systems not noted in ROS Statement are negative. Past Medical History Past Medical History: Asthma, GERD/Reflux, Hyperlipidemia, Hypertension, Osteoarthritis (OA), Seizure Disorder Additional Past Medical History / Comment(s): SEIZURE -LAST SEIZURE AT AGE 30, "INCOMPLETE RIGHT BUNDLE BRANCH BLOCK." Had 1st Covid Vacccine. History of Any Multi-Drug Resistant Organisms: None Reported Past Surgical History: Bowel Resection, Hernia Repair, Hysterectomy Additional Past Surgical History / Comment(s): BOWEL RESECTION, BLADDER REPAIR, CYST REMOVED FROM OVARY, colonoscopy Past Anesthesia/Blood Transfusion Reactions: No Reported Reaction Past Psychological History: Anxiety, Depression Smoking Status: Former smoker Past Alcohol Use History: None Reported Past Drug Use History: None Reported - Past Family History Mother Family Medical History: Cancer Additional Family Medical History / Comment(s): COLON CANCER. Father Family Medical History: Unable to Obtain Additional Family Medical History / Comment(s): Pt adopted. General Exam Limitations: no limitations General appearance: alert, in no apparent distress, anxious Head exam: Present: atraumatic, normocephalic Eye exam: Present: normal appearance. Absent: scleral icterus, conjunctival injection ENT exam: Present: normal oropharynx Neck exam: Present: normal inspection Respiratory exam: Present: normal lung sounds bilaterally. Absent: respiratory distress, wheezes, rales, rhonchi, stridor Cardiovascular Exam: Present: normal rhythm, tachycardia (Rate is 108 at my exam ), normal heart sounds. Absent: systolic murmur, diastolic murmur, rubs, gallop GI/Abdominal exam: Present: soft. Absent: distended, tenderness, guarding, rebound, rigid, mass Extremities exam: Present: normal inspection, normal capillary refill. Absent: pedal edema, calf tenderness Back exam: Present: normal inspection. Absent: CVA tenderness (R), CVA tenderness (L) Neurological exam: Present: alert Skin exam: Present: warm, dry, intact, normal color. Absent: rash Course Vital Signs 09/13/22 09/13/22 09/13/22 20:22 20:40 21:07 Temperature 98.2 F Pulse Rate 122 H 115 H 102 H Respiratory 18 20 21 Rate Blood Pressure 155/87 102/67 85/59 O2 Sat by Pulse 100 98 98 Oximetry 09/13/22 09/13/22 09/13/22 21:15 21:36 22:15 Temperature 98.0 F Pulse Rate 98 105 H 88 Respiratory 19 19 16 Rate Blood Pressure 118/86 125/81 128/77 O2 Sat by Pulse 97 96 97 Oximetry 09/13/22 09/14/22 09/14/22 23:15 05:00 07:22 Temperature Pulse Rate 86 77 130 H Respiratory 20 14 18 Rate Blood Pressure 133/85 114/70 119/80 O2 Sat by Pulse 97 97 100 Oximetry 09/14/22 07:31 Temperature Pulse Rate 105 H Respiratory 18 Rate Blood Pressure 156/83 O2 Sat by Pulse 98 Oximetry Medical Decision Making - Medical Decision Making This patient is a 67-year-old woman here with rectal bleeding. She did pass approximately 200-250 mL of red blood with clots here. She did appear to have vasovagal episode following passing the blood and clots. The vital signs did normalize. The colonoscopy note reviewed. She did have 2 relatively small polyps removed. The case is discussed with Dr. Rojas, as the patient is suppose procedure. 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 Requests hemoglobin every 6 hours. Case also discussed with admi tting group. I discussed results with patient and family. - Lab Data Result diagrams: 09/14/22 07:43 09/13/22 21:13 Lab Results 09/13/22 09/13/22 09/13/22 Range/Units 21:13 21:13 21:13 WBC 11.6 H (3.8-10.6) k/uL RBC 4.29 (3.80-5.40) m/uL Hgb 12.3 (11.4-16.0) gm/dL Hct 38.3 (34.0-46.0) % MCV 89.1 (80.0-100.0) fL MCH 28.7 (25.0-35.0) pg MCHC 32.2 (31.0-37.0) g/dL RDW 14.1 (11.5-15.5) % Plt Count 381 (150-450) k/uL MPV 6.9 Neutrophils % 59 % Lymphocytes % 32 % Monocytes % 6 % Eosinophils % 1 % Basophils % 1 % Neutrophils # 6.9 (1.3-7.7) k/uL Lymphocytes # 3.7 (1.0-4.8) k/uL Monocytes # 0.7 (0-1.0) k/uL Eosinophils # 0.1 (0-0.7) k/uL Basophils # 0.1 (0-0.2) k/uL APTT 20.6 L (22.0-30.0) sec Sodium 137 (137-145) mmol/L Potassium 3.5 (3.5-5.1) mmol/L Chloride 100 (98-107) mmol/L Carbon Dioxide 27 (22-30) mmol/L Anion Gap 10 mmol/L BUN 12 (7-17) mg/dL Creatinine 0.81 (0.52-1.04) mg/dL Est GFR (CKD-EPI)AfAm 87 (>60 ml/min/1.73 sqM) Est GFR (CKD-EPI)NonAf 75 (>60 ml/min/1.73 sqM) Glucose 119 H (74-99) mg/dL Lactic Ac Sepsis Rflx Plasma Lactic Acid Joel (0.7-2.0) mmol/L Calcium 9.5 (8.4-10.2) mg/dL Total Bilirubin 0.5 (0.2-1.3) mg/dL AST 29 (14-36) U/L ALT 32 (4-34) U/L Alkaline Phosphatase 90 (38-126) U/L Troponin I (0.000-0.034) ng/mL Total Protein 6.9 (6.3-8.2) g/dL Albumin 4.1 (3.5-5.0) g/dL Blood Type Blood Type Recheck Bld Type Recheck Status Antibody Screen Spec Expiration Date 09/13/22 09/13/22 09/13/22 Range/Units 21:13 21:13 21:13 WBC (3.8-10.6) k/uL RBC (3.80-5.40) m/uL Hgb (11.4-16.0) gm/dL Hct (34.0-46.0) % MCV (80.0-100.0) fL MCH (25.0-35.0) pg MCHC (31.0-37.0) g/dL RDW (11.5-15.5) % Plt Count (150-450) k/uL MPV Neutrophils % % Lymphocytes % % Monocytes % % Eosinophils % % Basophils % % Neutrophils # (1.3-7.7) k/uL Lymphocytes # (1.0-4.8) k/uL Monocytes # (0-1.0) k/uL Eosinophils # (0-0.7) k/uL Basophils # (0-0.2) k/uL APTT (22.0-30.0) sec Sodium (137-145) mmol/L Potassium (3.5-5.1) mmol/L Chloride (98-107) mmol/L Carbon Dioxide (22-30) mmol/L Anion Gap mmol/L BUN (7-17) mg/dL Creatinine (0.52-1.04) mg/dL Est GFR (CKD-EPI)AfAm (>60 ml/min/1.73 sqM) Est GFR (CKD-EPI)NonAf (>60 ml/min/1.73 sqM) Glucose (74-99) mg/dL Lactic Ac Sepsis Rflx Plasma Lactic Acid Joel 2.7 H* (0.7-2.0) mmol/L Calcium (8.4-10.2) mg/dL Total Bilirubin (0.2-1.3) mg/dL AST (14-36) U/L ALT (4-34) U/L Alkaline Phosphatase (38-126) U/L Troponin I <0.012 (0.000-0.034) ng/mL Total Protein (6.3-8.2) g/dL Albumin (3.5-5.0) g/dL Blood Type O Positive Blood Type Recheck O Pos Bld Type Recheck Status No Antibody Screen NEGATIVE Spec Expiration Date 09/16/2022 - 231209/13/22 Range/Units 21:56 WBC (3.8-10.6) k/uL RBC (3.80-5.40) m/uL Hgb (11.4-16.0) gm/dL Hct (34.0-46.0) % MCV (80.0-100.0) fL MCH (25.0-35.0) pg MCHC (31.0-37.0) g/dL RDW (11.5-15.5) % Plt Count (150-450) k/uL MPV Neutrophils % % Lymphocytes % % Monocytes % % Eosinophils % % Basophils % % Neutrophils # (1.3-7.7) k/uL Lymphocytes # (1.0-4.8) k/uL Monocytes # (0-1.0) k/uL Eosinophils # (0-0.7) k/uL Basophils # (0-0.2) k/uL APTT (22.0-30.0) sec Sodium (137-145) mmol/L Potassium (3.5-5.1) mmol/L Chloride (98-107) mmol/L Carbon Dioxide (22-30) mmol/L Anion Gap mmol/L BUN (7-17) mg/dL Creatinine (0.52-1.04) mg/dL Est GFR (CKD-EPI)AfAm (>60 ml/min/1.73 sqM) Est GFR (CKD-EPI)NonAf (>60 ml/min/1.73 sqM) Glucose (74-99) mg/dL Lactic Ac Sepsis Rflx Y Plasma Lactic Acid Joel (0.7-2.0) mmol/L Calcium (8.4-10.2) mg/dL Total Bilirubin (0.2-1.3) mg/dL AST (14-36) U/L ALT (4-34) U/L Alkaline Phosphatase (38-126) U/L Troponin I (0.000-0.034) ng/mL Total Protein (6.3-8.2) g/dL Albumin (3.5-5.0) g/dL Blood Type Blood Type Recheck Bld Type Recheck Status Antibody Screen Spec Expiration Date Disposition Clinical Impression: GI bleeding Disposition: ADMITTED IP TO THIS [facility] Condition: Good Is patient prescribed a controlled substance at d/c from ED?: No
[2022-09-13] MEDS ORDERED: NALOXONE 0.4 MG/ML 1 ML VIAL IV PRN (22:35)
[2022-09-13] MEDS ORDERED: ONDANSETRON 4 MG/2 ML VIAL IVP PRN (22:55)
[2022-09-13] MEDS ORDERED: LORazepam 2 MG/ML INJ IV STA (22:58)
[2022-09-13] MEDS: SODIUM CHLORIDE 0.9% 1,000 ML IV SCH (23:21)
[2022-09-14 07:54] LABS: HCT 32.1 % (34.0-46.0); HGB 10.4 gm/dL (11.4-16.0); MCH 28.5 pg (25.0-35.0); MCHC 32.3 g/dL (31.0-37.0); MCV 88.2 fL (80.0-100.0); Mean Platelet Volume 7.4; Platelet Count 314 k/uL (150-450); RBC 3.63 m/uL (3.80-5.40); RDW 14.3 % (11.5-15.5); WBC 10.6 k/uL (3.8-10.6)
[2022-09-14] MEDS ORDERED: TRANEXAMIC 1,000 MG/100ML-NACL 1,000 MG in SALINE 1 100ML.BAG IVPB ONE (07:55)
[2022-09-14] MEDS: LORazepam 2 MG/ML INJ IV PRN (08:41)
--- NOTE | 2022-09-14 09:13 | P.CONS ---
History of Present Illness - Reason for Consult Consult date: 09/14/22 GI bleed status post polypectomy Requesting physician: Sai Cobb - Chief Complaint Rectal bleeding - History of Present Illness This a pleasant 67-year-old female who presented yesterday for an outpatient screening colonoscopy. Colonoscopy with findings of to ascending colon polyp status post polypectomy and scattered sigmoid diverticulosis. Patient states she went home she was feeling well and then yesterday evening she started having rectal bleeding. She came to the emergency department for further evaluation. She states that she had several episodes at home and in the car while coming to the emergency department and again here in the emergency department. She states she is having lower abdominal cramping and discomfort, no nausea or vomiting but states she just does not feel well. She was noted to have a hemoglobin of 12.3 and platelet count 381,000 on admission. Patient denies any anticoagulation or history of bleeding disorder. She was given Tranexamic yesterday evening around 2100, bleeding then stopped and patient was able to sleep through the night. She woke up this morning and has had at least 3 large bloody bowel movements with clots approximately a liter of blood loss. Her most recent hemoglobin 10.4 platelet count 314,000. 123/89 heart rate 110 respiratory rate 18 oxygen 99% at room air. Another dose of Tranexamic follow-up was ordered by the medical team about this morning. Plan is for patient to be transferred to the ICU. She currently denies any shortness of breath or chest pain, is having lower abdominal cramping with dark red rectal bleeding and clots. Review of Systems REVIEW OF SYSTEMS: CARDIOPULMONARY: No chest pain or shortness of breath. Gastrointestinal: Low abdominal pain/cramping.. No nausea or vomiting. No hematemesis, coffee-ground emesis. Significant amount of bright red and dark red rectal bleeding with clots. GENITOURINARY: No dysuria or hematuria. MUSCULOSKELETAL: Reports normal range of motion. SKIN: No rashes. No jaundice. ENDOCRINE: No chills, fevers. No excessive weight gain or loss. No polydipsia or polyuria. PSYCHIATRIC: Anxious, has history of anxiety. NEUROLOGY: No change in mental status. Denies dizziness, headache. ENT: Vision unremarkable. CONSTITUTIONAL: No recent weight loss. No fever, chills, night sweats. Past Medical History Past Medical History: Asthma, GERD/Reflux, Hyperlipidemia, Hypertension, Osteoarthritis (OA), Seizure Disorder Additional Past Medical History / Comment(s): SEIZURE -LAST SEIZURE AT AGE 30, "INCOMPLETE RIGHT BUNDLE BRANCH BLOCK." Had 1st Covid Vacccine. History of Any Multi-Drug Resistant Organisms: None Reported Past Surgical History: Bowel Resection, Hernia Repair, Hysterectomy Additional Past Surgical History / Comment(s): BOWEL RESECTION, BLADDER REPAIR, CYST REMOVED FROM OVARY, colonoscopy Past Anesthesia/Blood Transfusion Reactions: No Reported Reaction Past Psychological History: Anxiety, Depression Smoking Status: Former smoker Past Alcohol Use History: None Reported Past Drug Use History: None Reported - Past Family History Mother Family Medical History: Cancer Additional Family Medical History / Comment(s): COLON CANCER. Father Family Medical History: Unable to Obtain Additional Family Medical History / Comment(s): Pt adopted. Medications and Allergies Home Medications Medication Instructions Recorded Confirmed Type Escitalopram Oxalate [Lexapro] 10 mg PO DAILY 12/06/15 09/14/22 History LORazepam [Ativan] 1 mg PO HS 12/06/15 09/14/22 History lisinopriL [Zestril] 5 mg PO DAILY 05/23/17 09/14/22 History cycloSPORINE [Restasis Multidose] 1 drop BOTH EYES BID 12/26/19 09/14/22 History Albuterol Sulfate [Proair Hfa] 1 - 2 puff INHALATION RT-Q6H PRN 08/20/20 09/14/22 History Cholecalciferol [Vitamin D3 (25 50 mcg PO DAILY 09/08/20 09/14/22 History Mcg = 1000 Iu)] Esomeprazole Magnesium [NexIUM] 40 mg PO DAILY 09/14/22 09/14/22 History Allergies Allergy/AdvReac Type Severity Reaction Status Date / Time codeine Allergy FLUSHED Verified 09/11/22 14:40 levofloxacin [From Levaquin] Allergy Nausea & Verified 09/11/22 14:40 Vomiting Sulfa (Sulfonamide Allergy Unknown Verified 09/11/22 14:40 Antibiotics) theophylline Allergy Rapid Verified 09/11/22 14:40 Heart Rate Physical Exam Vitals: Vital Signs Temp Pulse Resp BP Pulse Ox 09/14/22 08:17 110 H 18 123/89 99 09/14/22 07:31 105 H 18 156/83 98 09/14/22 07:22 130 H 18 119/80 100 09/14/22 05:00 77 14 114/70 97 09/13/22 23:15 86 20 133/85 97 09/13/22 22:15 98.0 F 88 16 128/77 97 09/13/22 21:36 105 H 19 125/81 96 09/13/22 21:15 98 19 118/86 97 09/13/22 21:07 102 H 21 85/59 98 09/13/22 20:40 115 H 20 102/67 98 09/13/22 20:22 98.2 F 122 H 18 155/87 100 Intake and Output 09/13/22 09/14/22 09/14/22 22:59 06:59 14:59 Output Total 500 Balance -500 Output: Stool 500 Other: Weight 67.132 kg General appearance: The patient is alert, oriented, appears in no acute distress. HET: Head is normocephalic and atraumatic. Conjunctiva pink. Sclera anicteric. Neck: Supple without lymphadenopathy. Trachea midline. Heart: S1 S2. Regular rate and rhythm. Lungs: Clear to auscultation. Abdomen: Soft, lower abdominal tenderness with bloating. No guarding or rigidity. Skin: No rashes. No jaundice. Extremities: Normal skin color and turgor. No pedal edema. Neurological: No focal deficits. Alert and oriented x3. Results CBC & Chem 7: 09/14/22 07:43 09/13/22 21:13 Labs: Abnormal Lab Results - Last 24 Hours (Table) 09/13/22 09/13/22 09/13/22 Range/Units 21:13 21:13 21:13 WBC 11.6 H (3.8-10.6) k/uL RBC (3.80-5.40) m/uL Hgb (11.4-16.0) gm/dL Hct (34.0-46.0) % APTT 20.6 L (22.0-30.0) sec Glucose 119 H (74-99) mg/dL Plasma Lactic Acid Joel (0.7-2.0) mmol/L Crossmatch 09/13/22 09/13/22 09/14/22 Range/Units 21:13 21:13 07:43 WBC (3.8-10.6) k/uL RBC 3.63 L (3.80-5.40) m/uL Hgb 10.4 L (11.4-16.0) gm/dL Hct 32.1 L (34.0-46.0) % APTT (22.0-30.0) sec Glucose (74-99) mg/dL Plasma Lactic Acid Joel 2.7 H* (0.7-2.0) mmol/L Crossmatch See Detail Assessment and Plan Assessment: 1. Acute lower GI bleed status post colonoscopy and polypectomy of ascending colon polyps on 09/13/22 2. History of colon polyps 3. History of hypertension and hyperlipidemia (1) Post-polypectomy bleeding Narrative/Plan: 67-year-old female presented for lower GI bleed status post colonoscopy and polypectomy yesterday. Patient continues to have significant amounts of rectal bleeding. She had 2 ascending colon polyps status post polypectomy, likely bleeding coming fromsite. Not on any anticoagulation. Having lower abdominal cramping and some bloating. Plan for blood transfusion as needed, admission to the ICU and will proceed with colonoscopy. Current Visit: Yes Status: Acute Code(s): [id number] - SNOMED Code(s): 226058391 (2) History of colon polyps Current Visit: Yes Status: Acute Code(s): Z86.010 - PERSONAL HISTORY OF COLONIC POLYPS SNOMED Code(s): 808466225 Plan: 1. Continue symptomatic and supportive care 2. CBC every 4 hours 3. 1 unit of PRBC ordered 4. Keep nothing by mouth 5. Patient scheduled for colonoscopy 6. Tranexamic ordered per medical team 7. Admit to ICU Thank you for this consultation. Dr. Rambo Rojas I agree with the dictator's note, documented as a scribe by Mattie Hinojosa.
[2022-09-14] MEDS ORDERED: ALBUMIN HUMAN 5% (12.5gm) 250 ML BOTTLE IVPB ONE (10:43)
[2022-09-14] MEDS ORDERED: PROPOFOL 10 MG/ML 20 ML VIAL IV ONE (10:43)
[2022-09-14] MEDS ORDERED: IV FLUID CONTINUATION 1,000 ML IV ONE ×2 (10:45)
--- NOTE | 2022-09-14 11:06 | P.PCN ---
Date of Procedure: 09/14/22 Procedure(s) Performed: BRIEF HISTORY: Patient is a 59-year-old [facility] female admitted hospital with post polypectomy lower GI bleed. Patient underwent a screening colonoscopy yesterday and was noted to have 2 polyps in the ascending colon measuring between 5 mm and 1 cm in size removed by snare polypectomy. The recovery was uneventful and she went home and around 9:00 last night she had first episode of rectal bleeding. She continued to have several episodes after that he came into the emergency room and subsequently admitted to the hospital for further management. Initial hemoglobin was 12.2 and this morning. 10 g/dL. This morning she became somewhat hypotensive and tachycardic and is currently receiving 1 unit of PRBC transfusion. She is scheduled for a repeat colonoscopy on an emergent basis. PROCEDURE PERFORMED: Colonoscopy with Endo Clip placement. . PREOPERATIVE DIAGNOSIS: [Acute post polypectomy lower GI bleed IV sedation per Anesthesia. PROCEDURE: After informed consent was obtained, the patient, was brought into the endoscopy unit. IV sedation was administered by Anesthesia under continuous monitoring. Digital rectal examination was normal. Initially the Olympus CF-160 flexible video colonoscope was then inserted in the rectum, gradually advanced into the cecum with moderate difficulty. Careful examination was performed as the scope was gradually being withdrawn. Ileocecal valve and the appendiceal orifice were visualized and appeared normal. Prep was fair. There was fresh blood with clots noted in the entire colon there was thoroughly irrigated. Mucosa of the cecum, normal. In the proximal ascending colon there was a ulcer noted at the site of previous polypectomy with no active bleeding. Just distal to this area. The hepatic flexure in the ascending colon at the site of previous polypectomy there was a large clot noted. A visible vessel was noted with small amount of oozing. At this time 2 endoclips were placed and good hemostasis was achieved. The rest of the ascending colon, transverse colon, descending colon, sigmoid colon, and rectum appeared normal. scattered sigmoid diverticula seen. Retroflexion was performed in the rectum and no lesions were seen. The patient tolerated the procedure well. IMPRESSION: A large clot in the distal ascending colon at the site of previous polypectomy with a visible vessel and oozing status post 2 endoclips placed with good hemostasis Scattered sigmoid diverticulosis RECOMMENDATIONS: Findings of this examination were discussed with the patient as well as a family. She'll be transferred to the intensive care unit. Monitor CBC closely. Start on clear liquid diet.
[2022-09-14 11:37] LABS: Glucose,Whole Blood 114 mg/dL (70-110)
[2022-09-14] MEDS: PANTOPRAZOLE 40 MG/10 ML VIAL IV SCH (11:56)
[2022-09-14] MEDS: SODIUM CHLORIDE 0.9% 1,000 ML IV SCH (11:56)
[2022-09-14 11:59] LABS: HCT 26.6 % (34.0-46.0); MCH 28.9 pg (25.0-35.0); MCHC 32.5 g/dL (31.0-37.0); MCV 88.7 fL (80.0-100.0); Mean Platelet Volume 7.1; Platelet Count 219 k/uL (150-450); RBC 2.99 m/uL (3.80-5.40); RDW 14.2 % (11.5-15.5); WBC 7.9 k/uL (3.8-10.6)
[2022-09-14 13:02] LABS: HGB 8.6 gm/dL (11.4-16.0)
[2022-09-14] MEDS ORDERED: ALBUTEROL NEBULIZED 2.5 MG/3 ML INHALATION PRN (14:57)
[2022-09-14 16:29] LABS: HCT 27.6 % (34.0-46.0); HGB 9.1 gm/dL (11.4-16.0); MCH 29.4 pg (25.0-35.0); MCV 89.1 fL (80.0-100.0); Mean Platelet Volume 6.9; Platelet Count 228 k/uL (150-450); RDW 14.3 % (11.5-15.5); WBC 9.1 k/uL (3.8-10.6)
[2022-09-14] MEDS ORDERED: ACETAMINOPHEN TAB 325 MG TAB PO PRN (17:56)
[2022-09-14] MEDS ORDERED: LORazepam 1 MG TAB PO SCH (21:00)
[2022-09-14] MEDS: cycloSPORINE 0.05% OPHTH 0.4 ML DROPERETTE BOTH EYES SCH (21:00)
--- NOTE | 2022-09-14 22:07 | HP ---
HISTORY AND PHYSICAL CHIEF COMPLAINTS: GI bleed. HISTORY OF PRESENT ILLNESS: This is a 67-year-old woman with a past medical history of multiple medical problems, who had colonoscopy and polypectomy. The patient started bleeding at home, and because of significant bleeding, the patient came to [facility]. Hemoglobin dropped from 12 to 8, and the patient was admitted for further evaluation and treatment. Dr. Rojas performed repeat colonoscopy, and there was a large clot in the descending colon at the site of previous polypectomy. Endoclips were applied. There is no history of any fever, rigors, or chills at this time. PAST MEDICAL HISTORY: Reviewed includes recent polypectomy. Rest of the history and rest of the chart are also reviewed. HOME MEDICATIONS: Reviewed include lisinopril. Doses and rest of the medications are noted. ALLERGIES: Codeine. Rest of the allergies are noted. FAMILY HISTORY: History of colon cancer in the family. SOCIAL HISTORY: Previous history of smoking. REVIEW OF SYSTEMS: Fourteen-point review is negative except as mentioned earlier. PHYSICAL EXAMINATION: VITAL SIGNS: Pulse is 99, blood pressure 121/85, respiration 20. HEENT: Conjunctivae are normal. NECK: No jugular venous distention. CARDIOVASCULAR: S1 and S2 muffled. RESPIRATORY: Breath sounds diminished at the bases. ABDOMEN: Soft and nontender. LEGS: No edema. No swelling. NERVOUS SYSTEM: No focal deficits. SKIN: No ulcers or rashes. JOINTS: No active deforming arthropathy. LABORATORY DATA: Reviewed. ASSESSMENT: 1. Lower gastrointestinal bleeding from the polypectomy site. 2. Repeat colonoscopy and as well as Endoclip application. 3. Asthma. 4. Hypertension. 5. Hyperlipidemia. 6. Seizure disorder. 7. Multiple complex medical issues. RECOMMENDATIONS AND DISCUSSION: Recommend to continue current medications. Continue symptomatic treatment. Repeat labs. H and H q.6 and transfuse periodically. Otherwise, monitor closely in ICU. I would also recommend to resume the home medications. DVT prophylaxis. Overall, prognosis is guarded. Further recommendations to follow. The patient has already received 1 unit of transfusion. Discussed with the patient. MMSTEFFEN / LUPEN: [id number] /
[2022-09-15] MEDS: SODIUM CHLORIDE 0.9% 1,000 ML IV SCH (01:37)
[2022-09-15] MEDS ORDERED: ESCITALOPRAM 10 MG TAB PO SCH (09:00)
[2022-09-15] MEDS ORDERED: lisinopriL 5 MG TAB PO SCH (09:00)
[2022-09-15] MEDS ORDERED: CHOLECALCIFEROL 25 MCG (1000 IU) TABLET PO SCH (09:00)
[2022-09-15] MEDS ORDERED: FERROUS SULFATE 325 MG TAB PO SCH (09:15)
--- NOTE | 2022-09-15 09:23 | P.PN ---
Subjective Progress Note Date: 09/15/22 Principal diagnosis: Post polypectomy bleed 67-year-old female who had presented to the emergency department status post colonoscopy with polypectomy followed by a significant amount of acute rectal bleed. She lost an estimated 1 L of blood, had a drop in her hemoglobin from 12 .3 to 10.4, was given 1 unit of blood. She went for repeat colonoscopy with findings of a large clot in the distal ascending colon at the site of previous polypectomy with a visible vessel and oozing status post [address] with good hemostasis as well as scattered diverticulosis. Patient was then sent to the ICU for close monitoring. Repeat hemoglobin 8.6 and then 9.1. She had no further bleeding since the colonoscopy and states yesterday evening she did have a small bowel movement with no blood. States that she is feeling weak, a little bloated in the abdomen, but no abdominal pain nausea or vomiting. She's been tolerating clear liquid diet since yesterday. This morning's labs are currently pending. Objective - Vital Signs Vital signs: Vital Signs Temp 97.5 F L 09/15/22 07:53 Pulse 82 09/15/22 07:53 Resp 18 09/15/22 07:53 BP 149/71 09/15/22 07:53 Pulse Ox 99 09/15/22 07:53 FiO2 Intake & Output 09/14/22 09/15/22 09/15/22 18:59 06:59 18:59 Intake Total 1008 Output Total 1450 Balance -442 Weight 72.575 kg 67 kg Intake: IV 725 Sodium Chloride 0.9% 1, 525 000 ml @ 75 mls/hr IV . [id number] [facility] Rx#:[id number] Blood Product 283 Rc Pheresis 2 As3 Unit 283 [id number] Output: Urine 650 Stool 800 Other: Voiding Method Toilet Toilet # Voids 1 # Bowel Movements 1 - Exam General appearance: The patient is alert, oriented, appears in no acute distress. HET: Head is normocephalic and atraumatic. Conjunctiva pink. Sclera anicteric. Neck: Supple without lymphadenopathy. Abdomen: Soft, nontender, abdominal bloating. No guarding or rigidity. Extremities: Normal skin color and turgor. No pedal edema Skin: No rashes, no jaundice Neurological: No focal deficits. Alert and oriented. - Labs CBC & Chem 7: 09/14/22 16:10 09/13/22 21:13 Labs: Abnormal Lab Results - Last 24 Hours (Table) 09/13/22 09/14/22 09/14/22 Range/Units 21:13 11:33 11:36 RBC 2.99 L (3.80-5.40) m/uL Hgb 8.6 L D (11.4-16.0) gm/dL Hct 26.6 L (34.0-46.0) % POC Glucose (mg/dL) 114 H (70-110) mg/dL Crossmatch See Detail 09/14/22 Range/Units 16:10 RBC 3.10 L (3.80-5.40) m/uL Hgb 9.1 L (11.4-16.0) gm/dL Hct 27.6 L (34.0-46.0) % POC Glucose (mg/dL) (70-110) mg/dL Crossmatch Assessment and Plan (1) Post-polypectomy bleeding Narrative/Plan: 67-year-old female presented for lower GI bleed status post colonoscopy and polypectomy yesterday. Patient continues to have significant amounts of rectal bleeding. She had 2 ascending colon polyps status post polypectomy, likely bleeding coming fromsite. Not on any anticoagulation. Having lower abdominal cramping and some bloating. Underwent repeat colonoscopy with findings of large clot and visible vessel with oozing status post 2 endoclips with good hemostasis. No further bleeding. Hemodynamically stable. Current Visit: Yes Status: Acute Code(s): JCV5663 - SNOMED Code(s): 139982166 (2) History of colon polyps Current Visit: Yes Status: Acute Code(s): Z86.010 - PERSONAL HISTORY OF COLONIC POLYPS SNOMED Code(s): 457453101 Plan: 1. Continue symptomatic and supportive care 2. Advance to full liquid diet for breakfast on regular diet for lunch 3. Iron 325 mg twice a day 4. Patient is status post colonoscopy with Endo Clip placement 5. If hemoglobin stable patient is cleared by gastroenterology for discharge. Follow-up with Dr. Rojas in 2 weeks. Thank you for this consultation. We will sign off at this time. Dr. Rambo Rojas I agree with the dictator's note, documented as a scribe by Mattie Hinojosa.
[2022-09-15 09:33] LABS: Basophils # (A) 0.03 X 10*3/uL (0.00-0.10); Basophils % (A) 0.4 %; Eosinophils # (A) 0.06 X 10*3/uL (0.04-0.35); Eosinophils % (A) 0.8 %; HCT 23.3 % (37.2-46.3); HGB 7.6 d/dL (12.0-15.0); Lymphocytes # (A) 2.88 X 10*3/uL (0.90-5.00); Lymphocytes % (A) 40.3 %; MCH 28.7 pg (27.0-32.0); MCHC 32.6 d/dL (32.0-37.0); MCV 87.9 FL (80.0-97.0); Mean Platelet Volume 8.9 FL (9.5-12.2); Monocytes # (A) 0.54 X 10*3/uL (0.20-1.00); Monocytes % (A) 7.6 %; NRBC Per 100 WBC 0 X 10*3/uL (0.00-0.01); Neutrophils # (A) 3.61 X 10*3/uL (1.80-7.70); Neutrophils % (A) 50.5 %; Platelet Count 188 X 10*3/uL (140-440); RBC 2.65 X 10*6/uL (4.10-5.20); WBC 7.15 X 10*3/uL (4.50-10.00)
[2022-09-15] MEDS: PANTOPRAZOLE 40 MG/10 ML VIAL IV SCH (09:37)
[2022-09-15] MEDS: cycloSPORINE 0.05% OPHTH 0.4 ML DROPERETTE BOTH EYES SCH (09:38)
[2022-09-15 09:41] LABS: Blood Urea Nitrogen 6.8 mg/dL (9.0-27.0); Calcium 8.6 mg/dL (8.7-10.3); Carbon Dioxide 23.5 mmol/L (21.6-31.8); Chloride 112 mmol/L (96-109); Glucose 94 mg/dL (70-110); Potassium 3.5 mmol/L (3.5-5.5); Sodium 143 mmol/L (135-145)
[2022-09-15] MEDS: LORazepam 2 MG/ML INJ IV PRN (09:50)
[2022-09-15] MEDS ORDERED: SODIUM FERRIC GLUCONAT-SUCROSE 125 MG in SODIUM CHLORIDE 0.9% 100 ML IVPB ONE (10:30)
[2022-09-15 11:37] VITALS: BP 122/73; PULSE 91; RESP 20; TEMP 98.2
--- NOTE | 2022-09-15 22:34 | P.DS ---
Providers Date of admission: 09/13/22 22:35 Attending physician: Lizbeth Jackson Consults: 09/13/22 22:55 Consult Physician Routine Consulting Provider: Talisha Rojas Consult Reason/Comments: Your patient, GI bleeding. Do you want consulting provider notified?: Already Contacted 09/14/22 07:37 Consult Physician Stat Consulting Provider: Char Roa Consult Reason/Comments: gi bleed, active Do you want consulting provider notified?: Yes Primary care physician: Charly Maldonado Hospital Course: Diagnoses: GI bleed with acute blood loss anemia status post colonoscopy and Endo Cliping of polypectomy site Recent history of colonoscopy and right ascending polypectomy 2 Hypertension Hospital course: This is a pleasant 67 years old female with past medical history of hypertension. Presents because of GI bleed after having polypectomy done when day earlier, GI team were N patient underwent repeat colonoscopy and Endo Clip and phlebectomy site at 2 places no further bleeding. No black stool. She denies any other symptoms. No abdominal pain. Tolerates diet well. Patient states that on admission had fresh blood in stool which is resolved now. GI team on the case after the patient for discharge. I discussed the case with a near myself including her hemoglobin 9.1 down to 7.6 blood indications the and vitals are stable. Hemoglobin is stable. Continue with Protonix upon discharge Patient denies any other new symptoms. No chest pain no dyspnea. Patient was cleared for discharge by GI team today. Problems and management plan were discussed with the patient and he verbalized understanding and acceptance Patient was found stable and can be discharged home in guarded prognosis however he needs follow-up as an outpatient. Patient was instructed to follow up with PCP Dr. Maldonado within one week and patient agrees patient was instructed to follow up with GI team Dr. Rojas in 2 weeks and she agrees to call make appointment Patient is advised to avoid NSAIDs as she states uses Motrin at times. She verbalized understanding and acceptance. Risks benefits explained Physical exam Gen: patient is a AAOx3, no distress CVS: S1-S2, RRR, no murmur Lungs: B/L CTA, no wheezing Abdomen: soft, no distention, no tenderness, positive bowel sounds Extremity: no leg edema or induration Time spent more than 35 minutes Patient Condition at Discharge: Good Plan - Discharge Summary Discharge Rx Participant: No New Discharge Prescriptions: New RX: Ferrous Sulfate [Iron (65 MG Elemental)] 325 mg PO BID-W/MEALS 90 Days #180 tab Pantoprazole Sodium [Protonix] 40 mg PO DAILY 30 Days #30 tab RX: Acetaminophen Tab [Tylenol] 650 mg PO Q6HR PRN tab PRN Reason: Fever And/ Or Pain Continue RX: Escitalopram Oxalate [Lexapro] 10 mg PO DAILY RX: LORazepam [Ativan] 1 mg PO HS RX: lisinopriL [Zestril] 5 mg PO DAILY RX: cycloSPORINE [Restasis Multidose] 1 drop BOTH EYES BID RX: Albuterol Sulfate [Proair Hfa] 1 - 2 puff INHALATION RT-Q6H PRN PRN Reason: Asthma RX: Cholecalciferol [Vitamin D3 (25 Mcg = 1000 Iu)] 50 mcg PO DAILY RX: Esomeprazole Magnesium [NexIUM] 40 mg PO DAILY Discharge Medication List RX: Escitalopram Oxalate [Lexapro] 10 mg PO DAILY 12/06/15 [History] RX: LORazepam [Ativan] 1 mg PO HS 12/06/15 [History] RX: lisinopriL [Zestril] 5 mg PO DAILY 05/23/17 [History] RX: cycloSPORINE [Restasis Multidose] 1 drop BOTH EYES BID 12/26/19 [History] RX: Albuterol Sulfate [Proair Hfa] 1 - 2 puff INHALATION RT-Q6H PRN 08/20/20 [History] RX: Cholecalciferol [Vitamin D3 (25 Mcg = 1000 Iu)] 50 mcg PO DAILY 09/08/20 [History] RX: Esomeprazole Magnesium [NexIUM] 40 mg PO DAILY 09/14/22 [History] Pantoprazole Sodium [Protonix] 40 mg PO DAILY 30 Days #30 tab 09/15/22 [Rx] RX: Acetaminophen Tab [Tylenol] 650 mg PO Q6HR PRN tab 09/15/22 [Rx] RX: Ferrous Sulfate [Iron (65 MG Elemental)] 325 mg PO BID-W/MEALS 90 Days #180 tab 09/15/22 [Rx] Follow up Appointment(s)/Referral(s): Talisha Rojas MD [STAFF PHYSICIAN] - 09/25/22 3:00 pm Charly Maldonado DO [Primary Care Provider] - 10/10/22 9:30 am (patient added to cancellation list, the office will call if an appointment opens up sooner. ) Patient Instructions/Handouts: Iron Supplements (By mouth), Pantoprazole (By mouth), Gastrointestinal Bleeding (DC), Colonoscopy (GEN) Activity/Diet/Wound Care/Special Instructions: regular diet activity is restricted till you see your doctor avoid NSAIDS eg no motrin etc Discharge Disposition: HOME SELF-CARE
== END 2022-09-15 15:50 | disposition home or self-care (01) | DRG 920 ==
LOC: EC 20:15 → 4SSUR 22:35 → 2SICU 09-14 08:16 → 5NMEDONC 09-14 19:35
PROVIDERS: ADMIT Hospitalist; ATTEND Hospitalist
PROC: 30233N1 Transfusion of Nonautologous Red Blood Cells into Peripheral Vein, Percutaneous Approach (ICD-10-PCS; 2022-09-14)
PROC: 0W3P8ZZ Control Bleeding in Gastrointestinal Tract, Via Natural or Artificial Opening Endoscopic (ICD-10-PCS; principal; 2022-09-14 08:25)
DX: K91.840 Postprocedural hemorrhage of a digestive system organ or structure following a digestive system procedure (principal); D62 Acute posthemorrhagic anemia; K63.3 Ulcer of intestine; Y83.8 Other surgical procedures as the cause of abnormal reaction of the patient, or of later complication, without mention of misadventure at the time of the procedure; K57.30 Diverticulosis of large intestine without perforation or abscess without bleeding; I10 Essential (primary) hypertension; J45.909 Unspecified asthma, uncomplicated; G40.909 Epilepsy, unspecified, not intractable, without status epilepticus; E78.5 Hyperlipidemia, unspecified; Z79.899 Other long term (current) drug therapy; Z80.0 Family history of malignant neoplasm of digestive organs; Z87.19 Personal history of other diseases of the digestive system; Z87.891 Personal history of nicotine dependence; Z90.710 Acquired absence of both cervix and uterus
CPT/HCPCS: 36415; 36430; 45382; 80048; 80053; 83605; 84484; 85025; 85027; 85730; 86850; 86900; 86901; 86920; 93005; 96361; 96374; 96375; 96376; 99285

== ENCOUNTER → 2022-09-22 | Outpatient (CLI) | payer MEDICARE ==
[2022-09-22 11:48] VITALS: BP 98/63; PULSE 97; RESP 16; TEMP 97.6
--- NOTE | 2022-09-22 12:00 | P.PN ---
Subjective Progress Note Date: 09/22/22 Principal diagnosis: right nipple inversion abnormal right breast mammogram Katia is a 66 year old white female seen in consultation for Dr. Maldonado regarding a change in her right nipple area. She had a bilateral mammogram on 07-11-21 which led to a left breast diagnostic mammogram on 07-15-21, repeat in one year recommended. She had a right breast mammogram and ultrasound on 02-28-22 which showed some dilated ducts on the right side, but f elt to be BIRAD 2 and repeat in 1 year. The right nipple became inverted several months ago. She is not complaining of any lumps masses or nodules. She did not have any trauma or infection in the breast. She also complains of itching at times. She has not had any surgery on either breast. A bilateral MRI was done on 09-02-22 which showed nipple inversion bilateral greater on the right but otherwise benign Patient underwent a colonoscopy last week and had two polyps removed and bled afterwards. She received a unit of blood. She is doing well at this time. Caffiene: 3 cups/day nicotine: none; stopped 38 years ago smoked for 10 years 1 pack/week BCP: none hormones: estrogen pill for 2 years chocolate: weekly Family History: maternal grandmother: breast cancer mother: colon cancer Hormonal History: menarche: 10 , breast fed: no, age at first : 17 menopause: bilateral oophrectomy at different times in late 30's, followed by hysterectomy done for endometriosis Surgical History: bilateral oophrectomy hysterectomy ovarian cyst bowel resection hernia abdominoplasty Medical History: asthma HTN GERD anxiety depression Social History: smoke: none; as above alcohol: none drugs:none - Constitutional Constitutional: Denies chills, Denies fever - EENT Eyes: denies blurred vision, denies pain Ears: deny: decreased hearing, tinnitus Ears, nose, mouth and throat: Reports headache, Denies sore throat - Breasts Breasts: bilateral: as per HPI - Cardiovascular Cardiovascular: Denies chest pain, Denies shortness of breath - Respiratory Respiratory: Denies cough - Gastrointestinal Gastrointestinal: Denies abdominal pain, Denies nausea, Denies vomiting - Genitourinary (Female) Genitourinary: Denies dysuria, Denies hematuria - Menstruation Menstruation: Reports post hysterectomy - Musculoskeletal Comment: back pain Musculoskeletal: Denies myalgias - Integumentary Integumentary: Denies pruritus, Denies rash - Neurological Neurological: Denies numbness, Denies weakness - Psychiatric Psychiatric: Reports anxiety, Reports depression - Endocrine Endocrine: Denies fatigue, Denies weight change - Hematologic/Lymphatic Comment: none - Allergic/Immunologic Allergic/Immunologic: Reports seasonal allergies Past Medical History Past Medical History: Asthma, GERD/Reflux, Hyperlipidemia, Hypertension, Osteoarthritis (OA), Seizure Disorder Additional Past Medical History / Comment(s): SEIZURE -LAST SEIZURE AT AGE 30, "INCOMPLETE RIGHT BUNDLE BRANCH BLOCK." Had 1st Covid Vacccine. History of Any Multi-Drug Resistant Organisms: None Reported Past Surgical History: Bowel Resection, Hernia Repair, Hysterectomy Additional Past Surgical History / Comment(s): BOWEL RESECTION, BLADDER REPAIR, CYST REMOVED FROM OVARY. Past Anesthesia/Blood Transfusion Reactions: No Reported Reaction Past Psychological History: Anxiety, Depression Smoking Status: Former smoker Past Alcohol Use History: Rare Additional Past Alcohol Use History / Comment(s): STARTED SMOKING AT 16, QUIT AT AGE 29, SMOKED ON AND OFF, 1/2PPD. Past Drug Use History: None Reported - Past Family History Mother Family Medical History: Cancer Additional Family Medical History / Comment(s): COLON CANCER. Father Family Medical History: Unable to Obtain Additional Family Medical History / Comment(s): Pt adopted. Medications and Allergies Home Medications Medication Instructions Recorded Confirmed Type Escitalopram Oxalate [Lexapro] 10 mg PO DAILY 12/06/15 06/08/22 History LORazepam [Ativan] 1 mg PO BID PRN 12/06/15 06/08/22 History Esomeprazole Magnesium [NexIUM] 40 mg PO DAILY 05/23/17 06/08/22 History lisinopriL [Zestril] 5 mg PO DAILY 05/23/17 06/08/22 History cycloSPORINE [Restasis Multidose] 1 drop BOTH EYES BID 12/26/19 06/08/22 History Albuterol Sulfate [Proair Hfa] 1 - 2 puff INHALATION Q6HR PRN 08/20/20 06/08/22 History Ascorbic Acid [Vitamin C] 1,000 mg PO DAILY 09/08/20 06/08/22 History Cholecalciferol [Vitamin D3 (25 50 mcg PO DAILY 09/08/20 06/08/22 History Mcg = 1000 Iu)] Zinc 50 mg PO DAILY 09/08/20 06/08/22 History Allergies Allergy/AdvReac Type Severity Reaction Status Date / Time codeine Allergy FLUSHED Verified 06/08/22 13:02 levofloxacin [From Levaquin] Allergy Nausea & Verified 06/08/22 13:02 Vomiting Sulfa (Sulfonamide Allergy Unknown Verified 06/08/22 13:02 Antibiotics) theophylline Allergy Rapid Verified 06/08/22 13:02 Heart Rate Objective - Vital Signs Vital signs: Intake & Output 09/21/22 09/22/22 09/22/22 18:59 06:59 18:59 Weight 67.132 kg - Constitutional General appearance: Present: cooperative - EENT Eyes: Present: EOMI ENT: Present: hearing grossly normal - Neck Neck: Present: normal ROM - Respiratory Respiratory: bilateral: CTA - Cardiovascular Rhythm: regular Heart sounds: normal: S1, S2 - Gastrointestinal General gastrointestinal: Present: soft - Integumentary Integumentary: Present: normal turgor - Musculoskeletal Musculoskeletal: Present: gait normal - Psychiatric Psychiatric: Present: A&O x's 3, appropriate affect, intact judgment & insight - Additional findings Additional findings: Breast Exam: BRA: 36DD Inspection: Right nipple retracted, bilateral grade 3 ptosis Palpation: Right breast: Multi-positional exam fibrocystic changes right nipple retracted no dominant masses or nodules of concern question of a small area of nodularity behind the nipple areolar complex on the right Right axilla: No adenopathy of concern Left breast: Multi-positional exam fibrocystic changes no dominant masses or nodules of concern Left axilla: No adenopathy of concern Assessment and Plan Assessment: Impression: Right nipple inversion Fibrocystic breast changes Family history of cancer Plan: An FNA of the area posterior to the right nipple areolar complex Resection of the nipple areolar complex no matter what the results of the FNA show however if the FNA were to be positive we would do a wider excision as well as sentinel node biopsy Cc: Dr. Maldonado
== END ==
LOC: WWCWWP 10:54
PROVIDERS: ATTEND Surgery
DX: N60.11 Diffuse cystic mastopathy of right breast (principal); N60.41 Mammary duct ectasia of right breast; Z80.3 Family history of malignant neoplasm of breast; J45.909 Unspecified asthma, uncomplicated; I10 Essential (primary) hypertension; K21.9 Gastro-esophageal reflux disease without esophagitis; F41.9 Anxiety disorder, unspecified; F32.A Depression, unspecified; E78.5 Hyperlipidemia, unspecified; G40.909 Epilepsy, unspecified, not intractable, without status epilepticus; M19.90 Unspecified osteoarthritis, unspecified site; Z86.16 Personal history of COVID-19; Z87.891 Personal history of nicotine dependence; Z88.2 Allergy status to sulfonamides; Z88.1 Allergy status to other antibiotic agents; Z90.710 Acquired absence of both cervix and uterus; Z90.721 Acquired absence of ovaries, unilateral; Z79.51 Long term (current) use of inhaled steroids; Z88.5 Allergy status to narcotic agent; Z79.899 Other long term (current) drug therapy; Z88.8 Allergy status to other drugs, medicaments and biological substances

== ENCOUNTER → 2022-11-30 | Outpatient (CLI) | payer MEDICARE ==
--- NOTE | 2022-11-30 15:32 | US ---
EXAMINATION TYPE: US venous doppler duplex LE RT DATE OF EXAM: 11/30/2022 3:14 PM COMPARISON: None CLINICAL INDICATION: Female, 67 years old with history of I80.9 PHLEBITIS AND THROMBOPHLEBITIS; rt kn ee surgery 11/21, pain and swelling post knee since SIDE PERFORMED: Right TECHNIQUE: The lower extremity deep venous system is examined utilizing real time linear array sonog terese with graded compression, doppler sonography and color-flow sonography. VESSELS IMAGED: Common Femoral Vein Deep Femoral Vein Greater Saphenous Vein * Femoral Vein Popliteal Vein Small Saphenous Vein * Proximal Calf Veins (* superficial vessels) Right Leg: Negative for DVT Parachute Marker notes: Complex fluid collection noted at proximal calf at AOC: 6.1x2.4x1.0cm. On the provided images, this appears to be an intramuscular collection. Results communicated to Mateo at office IMPRESSION: 1. No evidence for DVT within the right lower extremity imaged from the groin to the upper calf. 2. Elongated complex intramuscular fluid collection posterior calf measuring 6.1 x 2.4 x 1.0 cm at th e area of concern. Possible sequela of a ruptured Whatley's cyst or a hematoma. Clinically correlate to exclude the possibility of abscess. Recommend either ultrasound follow-up to ensure gradual involuti on versus further evaluation with contrast-enhanced MRI.
== END | disposition home or self-care (01) ==
LOC: RADUSWWP 14:42
PROVIDERS: ATTEND Orthopaedic Surgery
DX: Z48.89 Encounter for other specified surgical aftercare (principal); I80.9 Phlebitis and thrombophlebitis of unspecified site; S83.241A Other tear of medial meniscus, current injury, right knee, initial encounter; S83.411A Sprain of medial collateral ligament of right knee, initial encounter; Z96.651 Presence of right artificial knee joint; X58.XXXA Exposure to other specified factors, initial encounter

== ENCOUNTER → 2023-12-11 | Outpatient (CLI) | payer MEDICARE ==
--- NOTE | 2023-12-11 15:15 | US ---
EXAMINATION TYPE: US venous doppler duplex LE RT DATE OF EXAM: 12/11/2023 2:21 PM COMPARISON: US 2022 CLINICAL INDICATION: Female, 68 years old with history of M79.89 OTHER SPECIFIED SOFT TISSUE DISORDER S RLE; Right foot swelling SIDE PERFORMED: Right TECHNIQUE: The lower extremity deep venous system is examined utilizing real time linear array sonog terese with graded compression, doppler sonography and color-flow sonography. VESSELS IMAGED: Common Femoral Vein Deep Femoral Vein Greater Saphenous Vein * Femoral Vein Popliteal Vein Small Saphenous Vein * Proximal Calf Veins (* superficial vessels) Right Leg: Appears negative for DVT IMPRESSION: Grayscale, color doppler, spectral doppler imaging performed of the deep veins of the lo wer extremities. There is normal flow, compressibility, vascular waveforms. [facility], , 12/11/2023 3:13 PM
== END | disposition home or self-care (01) ==
LOC: RADUSWWP 14:05
PROVIDERS: ATTEND Family Medicine
DX: M79.89 Other specified soft tissue disorders (principal)